=== PATIENT | male | born 1970 | race Caucasian/White ===

== ENCOUNTER 2022-08-23 08:51 | Inpatient (IN) | payer OTHER ==
[~2022-08-23] VITALS: Ht 175.3 cm; Wt 108.4 kg
[2022-08-23] VITALS (29 sets, daily range): BP systolic 114–159; BP diastolic 45–95
[2022-08-23 10:18] LABS: Hematocrit 20.3 % (37.0-53.0); Hemoglobin 7.3 g/dL (13.5-17.5); Mean Corpuscular HGB 34.8 pg (26.0-34.0); Mean Corpuscular Volume 97 fL (80-100); RDW Coefficient Variation 20.7 % (11.7-14.2); RDW Standard Deviation 71.4 fL (35.1-46.3); White Blood Cell Count 2.06 K/mm3 (4.00-11.30)
[2022-08-23 10:19] LABS: Albumin, Blood 1.6 g/dL (3.4-5.0); Bilirubin, Total 14.9 mg/dL (0.1-1.0); Bun/Creatinine Ratio 54.6 (12.0-20.0); Calcium, Blood 6.1 mg/dL (8.5-10.1); Creatinine, Blood 1.96 mg/dL (0.60-1.20); Globulin, Blood 1.6 g/dL (2.2-4.0); Potassium, Blood 2.5 mmol/L (3.5-5.5); Total Protein, Blood 3.2 g/dL (6.4-8.2)
[2022-08-23 10:26] LABS: Platelet Count 28 K/mm3 (150-400)
[2022-08-23 10:33] LABS: International Normalized Ratio 2.36; Prothrombin Time Results 23.6 Sec (9.7-11.5)
[2022-08-23 10:39] LABS: BAND PERCENT MAN 14 % (0-8); BASOPHILS PERCENT MAN 0 % (0-2); EOSINOPHILS ABSOLUTE MAN 0.02 K/mm3 (0.00-0.68); EOSINOPHILS PERCENT MAN 1 % (0-6); LYMPHOCYTES ABSOLUTE MAN 0.16 K/mm3 (0.84-5.20); LYMPHOCYTES PERCENT MAN 8 % (21-46); METAMYELOCYTE ABSOLUTE MAN 0.04 K/mm3 (0.00-0.00); METAMYELOCYTE PERCENT MAN 2 % (0-0); MONOCYTES ABSOLUTE MAN 0.02 K/mm3 (0.16-1.47); MONOCYTES PERCENT MAN 1 % (4-13); MYELOCYTE ABSOLUTE MAN 0.06 K/mm3 (0.00-0.00); MYELOCYTE PERCENT MAN 3 % (0-0); NEUTROPHILS ABSOLUTE MAN 1.75 K/mm3 (1.96-9.15); SEG NEUTROPHILS PERCENT MAN 71 % (41-73); TOTAL CELLS COUNTED 100
[2022-08-23 11:51] LABS: Base Excess Venous -6.4 mmol/L; Bicarbonate Venous 19.6 mmol/L (24.0-30.0); PCO2 Venous 34.3 mmHg (38-42); pH Blood Venous 7.36 (7.34-7.37)
[2022-08-23] MEDS ORDERED: SODBIC650 PO (12:56)
[2022-08-23] MEDS ORDERED: TRAZ50 PO (12:56)
[2022-08-23] MEDS ORDERED: Prednisone10 MG PO (12:56)
[2022-08-23] MEDS ORDERED: ONDA4ODT MM (12:57)
[2022-08-23] MEDS ORDERED: INSULANI SC (13:03)
[2022-08-23 14:05] LABS: Albumin, Blood 2.3 g/dL (3.4-5.0); Albumin/Globulin Ratio 1.2 (0.8-1.8); Bilirubin, Total 20.6 mg/dL (0.1-1.0); Bun/Creatinine Ratio 49.7 (12.0-20.0); Calcium, Blood 8.4 mg/dL (8.5-10.1); Creatinine, Blood 3.18 mg/dL (0.60-1.20); Potassium, Blood 3.8 mmol/L (3.5-5.5); Total Protein, Blood 4.3 g/dL (6.4-8.2)
--- NOTE | 2022-08-23 14:10 | NUR ---
ASSUMED CARE PT ARRIVES FROM THE ER ON CPAP OF 12, WITH FIO2 25%. PT ANSWERING QUESTIONS BUT DROWSY. PT TRANSFERRED TO ICU BED, VERY PAINFUL TO LEFT LEG. 10/10 PAIN TO LIGHT TOUCH. PT. HAS PITTING EDEMA T/O BODY, WITH WEAPING BLISTERS TO BILAT LE. PT. HAS BLEEDING EXCORIATION TO GROIN AREA WELL TO BUTTOCKS. DRY FLOWS PLACED IN BED. ATTENDS WET UPON ARRIVAL. MARK CARE DONE AND WOO TEMP PROBE PLACED FOR STRICT I&O. PT. GIVEN SHORT BREAK FROM CPAP FOR ORAL CARE HOWEVER ONLY ABLE TO SPEAK IN 1-2 WORDS AND REPORTS FEELING SOB. PLACED BACK ON CPAP AT THIS TIME. PHOTOS OBTAINED OF WOUNDS AND PUT IN CHART. PT. HR [id number], SEE FLOW SHEET FOR BP. PT. ARRIVES ON 3% SALINE INFUSING THROUGH CENTRAL LINE TO RIGHT CHEST WALL. OOZING NOTED TO DRESSING TO CHEST WALL. REPEAT LABS DRAWN UPON ARRIVAL TO VERIFY LABS. DR. BRUNNER NOTIFIED OF PT ARRIVAL AND ADDITIONAL LAB ORDERS OBTAINED. PT. EXTREMELY TENDER TO LEFT LEG, IT IS RED IN COLOR AND APPEARS MORE SWOLLEN THEN THE OTHER SIDE. THE PT YELLS OUT DURING ASSESSMENT. ABD VERY FIRM AND DISTENDED. FAMILY AT BEDSIDE TO ASSIST WITH HISTORY.
--- NOTE | 2022-08-23 14:40 | NUR ---
REPEAT LABS COMPLETED. 3% SALINE DCD PER DR. CORTEZ.
[2022-08-23 14:49] LABS: Albumin, Blood 2.2 g/dL (3.4-5.0); Anion Gap 14 mmol/L (6-16); Blood Urea Nitrogen 157 mg/dL (8-24); Bun/Creatinine Ratio 50.2 (12.0-20.0); CO2, Blood 17 mmol/L (21-32); Calcium, Blood 8.7 mg/dL (8.5-10.1); Chloride, Blood 105 mmol/L (98-108); Creatinine, Blood 3.13 mg/dL (0.60-1.20); Glomerular Filtration Rate 23 (60-); Glucose, Blood 197 mg/dL (70-99); Phosphorus, Blood 4.7 mg/dL (2.5-4.9); Potassium, Blood 3.6 mmol/L (3.5-5.5); Sodium, Blood 136 mmol/L (136-145)
[2022-08-23 14:52] LABS: Osmolality, Serum 343 mos/KG (275-300)
[2022-08-23 15:08] LABS: Source, Urine Foley catheter
[2022-08-23 15:19] LABS: Hemoglobin 6.1 g/dL (13.5-17.5); Mean Corpuscular HGB 35.1 pg (26.0-34.0); Mean Corpuscular HGB Conc 36.3 g/dL (31.5-36.5); Mean Corpuscular Volume 97 fL (80-100); RDW Coefficient Variation 20.6 % (11.7-14.2); RDW Standard Deviation 72.1 fL (35.1-46.3); Red Blood Cell Count 1.74 M/mm3 (4.30-5.90); White Blood Cell Count 1.71 K/mm3 (4.00-11.30)
[2022-08-23 15:21] LABS: Appearance, Urine Clear (Clear); Blood, Urine 3+ (Neg); Color, Urine Amber (P-Yellow); Glucose Qualitative, Urine Neg (Neg); Ketones, Urine Neg (Neg); Leukocyte Esterase, Urine Neg (Neg); Nitrite, Urine Neg (Neg); Protein, Urine 2+ (Neg); Urobilinogen, Urine NORM (Normal)
[2022-08-23 15:41] LABS: Hematocrit 16.8 % (37.0-53.0); Platelet Count 24 K/mm3 (150-400)
--- NOTE | 2022-08-23 15:45 | NUR ---
DR. DONOHUE TO BEDSIDE TO TALK WITH FAMILY PT , MOTHER, AND SISTER AT BEDSIDE FOR CONVERSATION. PT. DROWSY BUT ABLE TO ANSWER SOME QUESTIONS. BREAK FROM BIPAP AT THIS TIME. PT. AND AGREEING TO SURGERY, PT MOTHER AND SISTER INSISTING ON TALKING TO DR. BRUNNER PRIOR TO SURGERY. DR. BRUNNER CALLED AND WAS ABLE TO TALK WITH FAMILY, WHO THEN AGREED TO SURGERY WELL. ORDERS OBTAINED FOR BLOOD PRODUCTS.
[2022-08-23 15:51] LABS: Bilirubin, Urine 1+ (Neg)
[2022-08-23 15:52] LABS: Bacteria Few /hpf; Renal Epithelial Few /hpf (0-Rare); Squamous Epithelial Cells Few /hpf (Few); White Blood Cells, Urine 0-2 /hpf (0-5)
--- NOTE | 2022-08-23 15:57 | NUR ---
DR. CASTANEDA CALLED TO UPDATED ON PT CONDITION AND PLAN OF CARE
[2022-08-23 15:58] LABS: BAND PERCENT MAN 11 % (0-8); BASOPHILS PERCENT MAN 0 % (0-2); EOSINOPHILS ABSOLUTE MAN 0.01 K/mm3 (0.00-0.68); EOSINOPHILS PERCENT MAN 1 % (0-6); LYMPHOCYTES ABSOLUTE MAN 0.11 K/mm3 (0.84-5.20); LYMPHOCYTES PERCENT MAN 7 % (21-46); METAMYELOCYTE ABSOLUTE MAN 0.01 K/mm3 (0.00-0.00); METAMYELOCYTE PERCENT MAN 1 % (0-0); MONOCYTES PERCENT MAN 6 % (4-13); MYELOCYTE ABSOLUTE MAN 0.03 K/mm3 (0.00-0.00); MYELOCYTE PERCENT MAN 2 % (0-0); NEUTROPHILS ABSOLUTE MAN 1.41 K/mm3 (1.96-9.15); SEG NEUTROPHILS PERCENT MAN 72 % (41-73); TOTAL CELLS COUNTED 100
--- NOTE | 2022-08-23 18:17 | NUR ---
UPDATE PT. FAMILY AND PT WISH FOR CODE STATUS CHANGE, TO BE DNR. THIS WAS ESTABLISHED AFTER HIS LAST HOSPITAL ADMISSION, PT MOM TO BRING IN PAPERWORK. DISCUSSED WITH DR. CASTANEDA AND CODE STATUS UPDATED. PT. CURRENTLY HAS PRBCS AND PLASMA INFUSING, PLANS TO INFUSE THE PLT AND THEN RETURN THE ADDITIONAL BLOOD PRODUCTS PER DR. CASTANEDA. PT FAMILY REMAIN AT BEDSIDE, TEARFUL. PT IS NOT A CANDIDATE FOR SURGERY AT THIS TIME. PLANS FOR PALLIATIVE CARE INVOLVEMENT.
--- NOTE | 2022-08-23 18:30 | NUR ---
PT. TEMP CONTINUES TO DROP DESPITE WARM BLANKET PLACEMENT, BEARHUGGER PLACED AT THIS TIME.
--- NOTE | 2022-08-23 18:57 | NUR ---
SHIFT SUMMARY PT REMAINS ALERT AND RESPONDS TO VERBAL STIMULI, INITIAL PLAN WAS TO TAKE PT TO SURGERY FOR LEFT LEG CELLULITIS, HOWEVER PT WAS TOO UNSTABLE FOR THIS AND A DECISION WAS MADE BETWEEN DR. DONOHUE AND FAMILY TO NOT DO SURGERY AT THIS TIME. PT CODE STATUS CHANGED TO DNR. BLOOD PRODUCTS GIVEN. PT. VSS AT THIS TIME. MINIMAL URINE OUTPUT, PLANS FOR BUMEX THIS PM PER DR. CORTEZ. FAMILY AT BEDSIDE T/O DAY. REPORT TO ONCOMING RN.
[2022-08-23 20:25] LABS: Hemoglobin 6.2 g/dL (13.5-17.5)
[2022-08-23 20:28] LABS: Hematocrit 17.7 % (37.0-53.0)
[2022-08-23 20:39] LABS: International Normalized Ratio 1.95
--- NOTE | 2022-08-23 20:43 | NUR ---
PATIENT SLEEPING AWAKENS TO SLIGHT STIMULI, ORIENT TO SELF, FAMILY AND BEING IN THE HOSPITAL. UNSURE OF DATE, FALLING BACK TO SLEEP WHEN UNDISTURBED. PAIN WITH SLIGHT MOVEMENT, GENERALIZED EDEMA WITH WEEPING YELLOW SEROUS TO ANY SKIN OPENINGS. DRESSING PLACED TO RIGHT ABD, AND ABD PADS PLACED IN GROIN WHICH IS BRIGHT RED. PLAN TO PREMEDICATE FOR PAIN WITH REPOSITIONINGS. BIOX 96% ON RA, USING ACCESSORY MUSCLES WITH BREATHING. BEAR HUGGER DOWN TO LOW DUE TO TEMP 96.3 VIA WOO TEMP PROBE. DOCTOR KANNAN ASKING FOR RENAL PANEL, LABS DRAWN VIA CENTRAL LINE WITHOUT DIFFICULTY.
[2022-08-23 20:45] LABS: Albumin, Blood 2.3 g/dL (3.4-5.0); Anion Gap 13 mmol/L (6-16); Blood Urea Nitrogen 159 mg/dL (8-24); Bun/Creatinine Ratio 49.1 (12.0-20.0); CO2, Blood 20 mmol/L (21-32); Calcium, Blood 8.7 mg/dL (8.5-10.1); Chloride, Blood 104 mmol/L (98-108); Creatinine, Blood 3.24 mg/dL (0.60-1.20); Glomerular Filtration Rate 22 (60-); Glucose, Blood 193 mg/dL (70-99); Phosphorus, Blood 5.1 mg/dL (2.5-4.9); Potassium, Blood 3.6 mmol/L (3.5-5.5); Sodium, Blood 137 mmol/L (136-145)
[2022-08-23 21:03] LABS: Prothrombin Time Results 19.7 Sec (9.7-11.5)
--- NOTE | 2022-08-23 21:29 | NUR ---
DOCTOR KANNAN NOTIFIED OF REPEAT LABS, ORDER OBTAINED FOR BUMEX 5 MG AND CALL WITH OUTPUT IN 2 HRS.
[2022-08-24] VITALS (35 sets, daily range): BP systolic 105–146; BP diastolic 44–110
[2022-08-24 04:07] LABS: Mean Corpuscular HGB 33.9 pg (26.0-34.0); Mean Corpuscular HGB Conc 36.6 g/dL (31.5-36.5); Mean Corpuscular Volume 93 fL (80-100); Mean Platelet Volume 10.6 fL (9.1-12.4); RDW Coefficient Variation 21.7 % (11.7-14.2); RDW Standard Deviation 71.1 fL (35.1-46.3); Red Blood Cell Count 1.77 M/mm3 (4.30-5.90); White Blood Cell Count 2.28 K/mm3 (4.00-11.30)
[2022-08-24 04:12] LABS: Platelet Count 33 K/mm3 (150-400)
[2022-08-24 04:13] LABS: Hematocrit 16.4 % (37.0-53.0)
--- NOTE | 2022-08-24 04:27 | NUR ---
DOCTOR BRONWYN NOTIFIED OF AM CBC AND BLOOD CX. NO SIGN OF ACTIVE BLEEDING SEEN. TRANSFUSE 1 UNIT PRBC AND CONTINUE CURRENT ANTIBIOTICS
[2022-08-24 04:32] LABS: Magnesium, Blood 2.3 mg/dL (1.6-2.4)
[2022-08-24 04:39] LABS: Alanine Aminotransfer (ALT/SGP 137 U/L (12-78); Albumin, Blood 2.3 g/dL (3.4-5.0); Albumin/Globulin Ratio 1.1 (0.8-1.8); Alk Phos 117 U/L (50-136); Anion Gap 12 mmol/L (6-16); Aspartate Aminotrans (AST/SGOT 103 U/L (12-37); Bilirubin, Total 21.5 mg/dL (0.1-1.0); Blood Urea Nitrogen 159 mg/dL (8-24); Bun/Creatinine Ratio 46.2 (12.0-20.0); CO2, Blood 20 mmol/L (21-32); Calcium, Blood 8.6 mg/dL (8.5-10.1); Chloride, Blood 105 mmol/L (98-108); Creatinine, Blood 3.44 mg/dL (0.60-1.20); Globulin, Blood 2.1 g/dL (2.2-4.0); Glomerular Filtration Rate 20 (60-); Glucose, Blood 191 mg/dL (70-99); Phosphorus, Blood 5.2 mg/dL (2.5-4.9); Potassium, Blood 3.6 mmol/L (3.5-5.5); Sodium, Blood 137 mmol/L (136-145); Total Protein, Blood 4.4 g/dL (6.4-8.2); Vancomycin, Random 28.6 ug/mL
[2022-08-24 05:07] LABS: BAND PERCENT MAN 22 % (0-8); BASOPHILS PERCENT MAN 0 % (0-2); EOSINOPHILS ABSOLUTE MAN 0.04 K/mm3 (0.00-0.68); EOSINOPHILS PERCENT MAN 2 % (0-6); LYMPHOCYTES ABSOLUTE MAN 0.18 K/mm3 (0.84-5.20); LYMPHOCYTES PERCENT MAN 8 % (21-46); METAMYELOCYTE ABSOLUTE MAN 0.04 K/mm3 (0.00-0.00); METAMYELOCYTE PERCENT MAN 2 % (0-0); MONOCYTES ABSOLUTE MAN 0.18 K/mm3 (0.16-1.47); MONOCYTES PERCENT MAN 8 % (4-13); MYELOCYTE ABSOLUTE MAN 0.04 K/mm3 (0.00-0.00); MYELOCYTE PERCENT MAN 2 % (0-0); NEUTROPHILS ABSOLUTE MAN 1.77 K/mm3 (1.96-9.15); SEG NEUTROPHILS PERCENT MAN 56 % (41-73); TOTAL CELLS COUNTED 50
--- NOTE | 2022-08-24 06:17 | NUR ---
SUMMARY PATIENT SLEEPING MOST OF THE NIGHT WHEN UNDISTURBED. AWAKENS TO SLIGHT STIMULI RECOGNIZING FAMILY AND BEING IN THE HOSPITAL. WHEN AWAKE C/O PAIN TO LEFT FOOT, AND GENERALIZED PAIN. INCREASED PAIN WITH REPOSITIONING. GENERALIZED 3-4+ PITTING EDEMA CONTINUES. WOO DRAINING SMALL AMT OF ORANGE URINE 24 HR URINE IN PROGRESS. SKIN BRIGHT JAUNDICE WITH WEEPING YELLOW SEROUS FLUID TO ANY BREAK IN SKIN, SCATTERED BLISTERS TO BOTH LEGS AND FEET. FOAM DRESSING AND ABD PAD PLACED TO RIGHT ABD DUE TO LARGE AMT OF DRAINAGE. 1 UNIT PRBC INFUSING. FAMILY AT BEDSIDE T/O NIGHT.
--- NOTE | 2022-08-24 09:00 | NUR ---
ASSUMED CARE: REPORT RECEIVED FROM CHESTER Sawyer RN. ASSUMED CARE OF THIS PT AT APPROX 0700. ON ASSESSMENT, THE PT IS RESTING QUIETLY & AWAKENS EASILY TO VERBAL STIMULUS. HE IS ALERT TO SELF, FAMILY & PLACE. FAMILY STS THAT HE IS MORE ALERT THAN IN PRIOR DAYS & APPEARS TO BE "FEELING MUCH BETTER." LS DIM IN BASES, PT ON RA W/ O2 SATS > 95%. MONITOR SHOWS SR W/ HR 90s, BP STABLE. PT HAS NO GI COMPLAINTS OTHER THAN THIRST. TOLERATES SIPS OF WATER WELL FOR LOCKSTITCH WAISTLINE JOINER. WOO PATENT/ DRAINING CLEAR ORANGE URINE. OUTPUT INCREASED SLIGHTLY SINCE DIURESIS PER EMAR. BUMEX DRIP INITIATED AFTER BOLUS, PER DR BRUNNER. SKIN CONDITION OVERALL EDEMATOUS, FRAGILE. NUMEROUS AREAS OF SKIN TEARS & BLISTERS THAT ARE WEEPING SEROUS YELLOW FLUID, DRI-FLOW PADS IN PLACE. LLE PAINFUL, WORSE IN ANKLE TODAY. EXACERBATED W/ REPOSITIONING, IMPROVED AT REST. PAIN MEDS PER EMAR. PRBCs INFUSED PER ORDERS. WILL REQUEST FOLLOW-UP H&H FROM PROVIDER. WILL CONTINUE TO MONITOR & UPDATE NEEDED.
--- NOTE | 2022-08-24 10:00 | NUR ---
DR CASTANEDA: PROVIDER AT BEDSIDE THIS AM TO EVAL PT. REPEAT H&H REQUESTED S/P PRBC INFUSION THIS AM. ADITIONAL UNIT PRBCs ORDERED, THEN RECHECK H&H 1 HR AFTER INFUSED. FENTANYL DOSING ADJUSTED TO BETTER TREAT PT's PAIN AT TIMES OF REPOSITIONING & INCREASED ADLs. SHE WOULD LIKE THIS RN TO CONTACT [facility] TO OBTAIN PT's INPATIENT RECORDS FOR RECENT HOSPITALIZATION. NO OTHER CHANGES AT THIS TIME.
--- NOTE | 2022-08-24 16:42 | NUR ---
DR BRUNNER: CALL FROM PROVIDER REQUESTING PT UPDATE. NOTIFIED HIM OF 500 ML TOTAL UO THIS SHIFT. HE STS TO GIVE ANOTHER DOSE OF IV ALBUMIN FOLLOWED BY 160 MG IV LASIX. THIS RN HAS CLARIFIED THAT CONTINUOUS BUMEX INFUSION IS TO CONTINUE DURING THIS TIME & PROVIDER STS THAT IT IS TO CONTINUE INDEFINITELY.
--- NOTE | 2022-08-24 17:14 | NUR ---
PHARMACY UPDATE: CALL FROM VICKIE, PHARMACIST, REGARDING NEW ORDERS FOR THIS PT. THERE IS CONCERN FOR OTOTOXICITY W/ AMNT OF DIURETICS BEING GIVEN. THIS RN HAS COMMUNICATED & DOCUMENTED THAT DR BRUNNER WAS CLEAR W/ HIS ORDERS TO CONTINUE BUMEX DRIP WHILE GIVING IV LASIX. SHE STS THAT THE IV LASIX MUST BE GIVEN OVER A MINIMUM OF 4 MINUTES IVP TO REDUCE THE RISK & REQUESTS THAT THE PT's HEARING BE CHECKED REGULARLY DURING DIURESIS.
[2022-08-24 17:43] LABS: Hematocrit 20.2 % (37.0-53.0)
[2022-08-24 17:44] LABS: Hemoglobin 7.6 g/dL (13.5-17.5)
--- NOTE | 2022-08-24 18:32 | NUR ---
SHIFT SUMMARY: NO ACUTE CHANGES THIS SHIFT. PT REMAINS A&O, HE IS PLEASANT & COOPERATIVE W/ CARE. HE HAS CONTINUED TO BE INCREASINGLY ALERT THIS SHIFT & IS CONVERSANT W/ STAFF/ FAMILY AT BEDSIDE. LS DIM IN BASES, PT ON RA W/ O2 SATS > 95%. MONITOR SHOWS SR W/ HR 70-80s, BP STABLE. PT HAS NO GI COMPLAINTS, IS TOLERATING SIPS OF WATER WELL. WILL REQUEST DIET ORDER TOMORROW AM IF PT CONTINUES TO IMPROVE OVERNIGHT. NO BM THIS SHIFT. TEMP WOO PATENT/ DRAINING CLEAR, ORANGE URINE, REMAINS IN PLACE FOR STRICT I&O MONITORING. DIURESIS PER EMAR - SEE I&O. 24 HR URINE WILL BE COMPLETED AT 1900 THIS EVENING. SKIN CONDITION OVERALL EDEMATOUS, FRAGILE, JAUNDICED. NUMEROUS AREAS OF SKIN TEARING & BLISTERS REMAIN PRESENT T/O. EXTREMITIES ARE WEEPING YELLOW SEROUS FLUID, DRI-FLOW PADS IN PLACE TO KEEP SKIN DRY. WILL CONTINUE TO MONITOR & REPORT OFF TO ONCOMING RN.
[2022-08-24 20:55] LABS: Albumin, Blood 2.5 g/dL (3.4-5.0); Anion Gap 11 mmol/L (6-16); Blood Urea Nitrogen 163 mg/dL (8-24); Bun/Creatinine Ratio 44.9 (12.0-20.0); CO2, Blood 21 mmol/L (21-32); Calcium, Blood 8.3 mg/dL (8.5-10.1); Chloride, Blood 104 mmol/L (98-108); Creatinine, Blood 3.63 mg/dL (0.60-1.20); Glomerular Filtration Rate 19 (60-); Glucose, Blood 191 mg/dL (70-99); Phosphorus, Blood 5.5 mg/dL (2.5-4.9); Potassium, Blood 3.2 mmol/L (3.5-5.5); Sodium, Blood 136 mmol/L (136-145)
[2022-08-25] VITALS (26 sets, daily range): BP systolic 110–153; BP diastolic 47–82
[2022-08-25 04:06] LABS: Vancomycin, Random 22.1 ug/mL
--- NOTE | 2022-08-25 06:38 | NUR ---
SHIFT SUMMARY: NO ACUTE CHANGES THROUGHOUT THE SHIFT. PT WAS ABLE TO SLEEP FOR MOST OF THE NIGHT. VSS THROUGHOUT THE NIGHT. PT HAD 400 ML URINE OUTPUT THIS SHIFT AND NO BM. BUMEX GTT @ 1 MG/HR; RENAL PANAL AND MAGNESIUM LAB DRAW ORDERED AT [address] BRUNNER WOULD LIKE RN TO CALL IN RESULTS. THE LAB RESULTS ARE STILL PENDING AT THIS TIME. PT HAD ABOUT 720 IN FLUID INTAKE THROUGHOUT THE NIGHT. BED LOWERED, CALL LIGHT IN REACH, WILL CONTINUE TO MONITOR.
[2022-08-25 06:42] LABS: Magnesium, Blood 2.2 mg/dL (1.6-2.4)
[2022-08-25 06:51] LABS: Albumin, Blood 2.6 g/dL (3.4-5.0); Anion Gap 12 mmol/L (6-16); Blood Urea Nitrogen 157 mg/dL (8-24); Bun/Creatinine Ratio 42.9 (12.0-20.0); CO2, Blood 20 mmol/L (21-32); Calcium, Blood 8.3 mg/dL (8.5-10.1); Chloride, Blood 104 mmol/L (98-108); Creatinine, Blood 3.66 mg/dL (0.60-1.20); Glomerular Filtration Rate 19 (60-); Glucose, Blood 182 mg/dL (70-99); Phosphorus, Blood 5.6 mg/dL (2.5-4.9); Potassium, Blood 3.3 mmol/L (3.5-5.5); Sodium, Blood 136 mmol/L (136-145)
--- NOTE | 2022-08-25 08:10 | NUR ---
ASSUMED CARE / DR CASTANEDA: REPORT RECEIVED FROM RANI Garcia RN. ASSUMED CARE OF THIS PT AT APPROX 0700. ON ASSESSMENT, THE PT IS A&O, PLEASANT & COOPERATIVE. HE KNOWS HE IS AT "[facility]" BUT DOES NOT REMEMBER THE NAME OF THE FACILITY, REORIENTS EASILY BUT IS STILL SOMEWHAT FORGETFUL AT TIMES. DENIES PAIN THIS AM AT REST. LS DIM IN BASES, PT ON RA W/ O2 SATS > 95%. MONITOR SHOWS SR W/ HR 80s, BP STABLE. PT DENIES GI COMPLAINTS, ALTHOUGH STS HAVING POOR APPETITE. URINE OUTPUT REMAINS POOR THROUGHOUT THE NIGHT, WILL CONTINUE TO MONITOR UO Q2H FOR STRICT I&O, TEMP WOO REMAINS PATENT/ DRAINING CLEAR ALEX URINE. SKIN CONDITION OVERALL JAUNDICED, FRAGILE. NUMEROUS AREAS OF BLISTERING EDEMA NOTED & SMALL OPEN SORES ON BUTTOCKS. DRESSINGS CHANGED PRN. Q2H REPOSITIONING TO MAINTAIN SKIN INTEGRITY. DR CASTANEDA AT BEDSIDE THIS AM TO EVAL PT. SHE STS OKAY TO BEGIN FEEDING THE PT HE HAS TOLERATED SIPS OF WATER WELL SO FAR. WOULD LIKE HIM TO REMAIN ICU STATUS FOR ONE MORE DAY OF CONTINUED MONITORING. WILL CONTINUE TO MONITOR & UPDATE NEEDED. WILL CONTINUE TO MONITOR & UPDATE NEEDED.
--- NOTE | 2022-08-25 17:30 | NUR ---
SHIFT SUMMARY / TRANSFER OF CARE: NO ACUTE CHANGES THIS SHIFT. PT REMAINS A&O, PLEASANT & COOPERATIVE. FAMILY HAS BEEN AT BEDSIDE FOR MOST OF THIS SHIFT & IS SUPPORTIVE IN CARE MEASURES. LS DIM IN BASES, PT ON RA W/ O2 SATS > 95%. MONITOR SHOWS SR W/ HR 80s, BP STABLE. PT HAS NO GI COMPLAINTS, HAS DONE WELL W/ ST EVAL THIS EVENING. SMALL AMNTS CLEAR ORANGE URINE DRAINING FROM TEMP PROBE WOO. SKIN CONDITION OVERALL JAUNDICED, FRAGILE & EDEMATOUS. NO CHANGES SINCE INITIAL ASSESSMENT. ALL DRI-FLOW PADS & DRESSINGS HAVE BEEN CHANGED PRN THIS SHIFT. REPORT GIVEN TO KRISTY Bowden RN TO ASSUME CARE FOR REMAINDER OF SHIFT. FAMILY VERBALIZES UNDERSTANDING OF TRANSFER OF CARE.
--- NOTE | 2022-08-25 18:38 | NUR ---
ASSUMPTION OF CARE/ SHIFT SUMMARY ASSUMED PATIENT AROUND 1700. PATIENT AFEBRILE. PATIENT GIVEN PRN FENTANYL JUST BEFORE ASSUMED ARE FOR COMPLAINTS OF LEG PAIN. PATIENT ORIENTED TO SELF, FAMILY, FOLLOWING DIRECTIONS. PATIENT FORGETFUL AT TIMES. PATIENT SATTING 90% AND GREATER ON RA. PATIENT IN SR WITH HR 80S TO 90S AND SBP LOW 100S TO 150S ON DAY SHIFT. NO BM ON DAY SHIFT. POOR APPETITE. 795 MLS OF URINE OUT FROM WOO OUT THIS SHIFT. BLOOD SUGARS 174 AND 166 ON DAY SHIFT. FAMILY IN ROOM AT BEDSIDE. BED LOW, CALL LIGHT IN REACH. REPORT WILL BE GIVEN TO ASSUMING PAPER BAG MAKER NURSE SHORTLY.
--- NOTE | 2022-08-25 22:20 | NUR ---
ASSUMED CARE AT 1900 PATIENT IS ALERT AND ORIENTED TO SELF AND FAMILY. UNABLE TO STATE YEAR OR MONTH. 02 SATS >95% ON RA, DENIES SOB. HR SR 77, BP STABLE. TEMP WOO PATENT AND DRAINING SMALL AMOUNT OF DARK ALEX URINE. PATIENT LINEN CHANGED AND PADS PLACED UNDER WEEPING WOUNDS. RIGHT CL REMOVED, CHG PLACED. NEW MEPLIX PLACED ON BUTTOCKS. CALL LIGHT IN REACH, SISTER AT BEDSIDE
[2022-08-26] VITALS (56 sets, daily range): BP systolic 101–151; BP diastolic 48–100
[2022-08-26 04:13] LABS: Hematocrit 19.7 % (37.0-53.0); Hemoglobin 7.3 g/dL (13.5-17.5)
[2022-08-26 04:35] LABS: Magnesium, Blood 2.3 mg/dL (1.6-2.4)
[2022-08-26 05:37] LABS: Albumin, Blood 2.1 g/dL (3.4-5.0); Anion Gap 15 mmol/L (6-16); Blood Urea Nitrogen 173 mg/dL (8-24); Bun/Creatinine Ratio 40.3 (12.0-20.0); CO2, Blood 21 mmol/L (21-32); Calcium, Blood 7.7 mg/dL (8.5-10.1); Chloride, Blood 102 mmol/L (98-108); Creatinine, Blood 4.29 mg/dL (0.60-1.20); Glomerular Filtration Rate 16 (60-); Glucose, Blood 214 mg/dL (70-99); Phosphorus, Blood 5.6 mg/dL (2.5-4.9); Potassium, Blood 3.4 mmol/L (3.5-5.5); Sodium, Blood 138 mmol/L (136-145); Vancomycin, Random 18.7 ug/mL
--- NOTE | 2022-08-26 07:01 | NUR ---
SHIFT SUMMARY PATIENT IS ALERT AND ORIENTED X2. 02 SATS >95% ON RA, DENIES SOB. HR SR 80s, BP STABLE. TEMP WOO PATENT AND DRAINING TO GRAVITY. BED CHANGED MULTIPLE TIMES DUE TO WEEPING WOUNDS. PATIENT TURNED Q2 HOURS. CALL LIGHT IN REACH.
[2022-08-26 07:44] LABS: Hematocrit 19.7 % (37.0-53.0); Hemoglobin 7.3 g/dL (13.5-17.5); Mean Corpuscular HGB 32.3 pg (26.0-34.0); Mean Corpuscular HGB Conc 37.1 g/dL (31.5-36.5); RDW Coefficient Variation 22.3 % (11.7-14.2); RDW Standard Deviation 67.3 fL (35.1-46.3); Red Blood Cell Count 2.26 M/mm3 (4.30-5.90); White Blood Cell Count 5.44 K/mm3 (4.00-11.30)
[2022-08-26 07:51] LABS: Mean Corpuscular Volume 87 fL (80-100)
[2022-08-26 08:02] LABS: Platelet Count 23 K/mm3 (150-400)
[2022-08-26 08:12] LABS: BAND PERCENT MAN 2 % (0-8); BASOPHILS PERCENT MAN 0 % (0-2); EOSINOPHILS ABSOLUTE MAN 0.27 K/mm3 (0.00-0.68); EOSINOPHILS PERCENT MAN 5 % (0-6); LYMPHOCYTES ABSOLUTE MAN 0.27 K/mm3 (0.84-5.20); LYMPHOCYTES PERCENT MAN 5 % (21-46); MONOCYTES ABSOLUTE MAN 0.32 K/mm3 (0.16-1.47); MONOCYTES PERCENT MAN 6 % (4-13); NEUTROPHILS ABSOLUTE MAN 4.56 K/mm3 (1.96-9.15); SEG NEUTROPHILS PERCENT MAN 82 % (41-73); TOTAL CELLS COUNTED 100
--- NOTE | 2022-08-26 08:15 | NUR ---
INITIAL ASSESSMENT PATIENT LYING IN BED UPON ENTERING ROOM. PATIENT LETHARGIC BUT ALERT ONCE BEING SPOKEN TO. PATIENT ORIENTED ONLY TO SELF, FAMILY AND FOLLOWING COMMANDS. PATIENT STATES HE "IS AT [facility], THAT THE YEAR IS 2002 AND THAT [facility]". SCLERA AND SKIN YELLOW. SISTER AT BEDSIDE. PATIENT REPORTS PAIN WITH MOVEMENT AND IS LOWER EXTREMITIES. PATIENT AFEBRILE. UPPER LUNG LOBES CLEAR, LOWER LOBES DIMINISHED. PATIENT SATTING 90% AND GREATER ON RA. PATIENT IN SR, HR IN THE 80S. SBP 130S TO 150S. ANASARCA NOTED. 2 TO 4+ PITTING EDEMA NOTED AND PATIENT HAS SIGNIFICANT SEROUS FLUID WEEPING FROM ABD AND LEGS. ABD SEVERELY DISTENDED, FIRM, WITH HYPOACTIVE BOWEL SOUNDS NOTED. POOR APPETITE NOTED. NO BM DOCUMENTED THIS HOSPITAL STAY. PATIENT STATES HE HAS BEEN HAVING FLATULENCE. WOO DRAINING DARK ALEX COLORED URINE. PATIENT IS NOW GETTING BUMEX TID. SKIN TEARS AND BRUISING SCATTERED. BLISTERING AND WEEPING ALL OVER LEGS AND R ABD. EXCORIATIONS TO GROINS AND BUTTOCKS. PATIENT RECEIVED 20 MEQ KCL THIS AM FOR POTASSIUM OF 3.4 THIS AM. BED LOW, CALL LIGHT IN REACH. WILL CONTINUE TO MONITOR PATIENT FREQUENTLY THROUGHOUT SHIFT.
--- NOTE | 2022-08-26 10:50 | NUR ---
DR. CASTANEDA HERE TO SEE PATIENT AND SPEAK WITH FAMILY IN ROOM. DOCTOR INFORMED THAT POTASSIUM 3.4 THIS AM AND THAT PATIENT RECEIVED 20 MEQ POTASSIUM REPLACEMENT. INFORMED THAT PATIENT DOES NOT HAVE DVT PROPHYLAXIS BUT THAT PATIENT PLATELETS 33 YESTERDAY AND NOW 23 TODAY. PATIENT WOULD NOT BE ABLE TO WEAR SCDS BECAUSE OF HOW SWOLLEN AND PAINFUL LEGS ARE. INFORMED THAT HEMOGLOBIN 8 YESTERDAY AND 7.[address] BRUNNER INCREASED BUMEX FROM BID TO TID. INFORMED THAT PATIENT HAS BEEN UNABLE TO HAVE BOWEL MOVEMENT AND STATES THAT HE KEEPS TRYING TO GO. INFORMED THAT PATIENT HAS BEEN RECEIVING PAIN MEDICATIONS. INFORMED THAT PATIENT'S NECK EDEMATOUS TODAY AND WAS NOT YESTERDAY. DR. CASTANEDA LOOKED AT PATIENT'S NECK. ORDER RECEIVED TO CHANGE PATIENT TO PCU STATUS AND CHANGE BLOOD SUGARS TO ACHS. STATED SHE WOULD ORDER BOWEL CARE.
--- NOTE | 2022-08-26 12:00 | NUR ---
PATIENT AFEBRILE. PATIENT STATES PAIN IS MANAGEABLE AT THIS TIME AND REFUSES REPOSITIONING. PATIENT DOES NOT WANT LUNCH AT THIS TIME. HR IN THE 80S. SBP IN THE 120S. 30 MLS URINE OUTPUT INTO WOO. 24 HOUR URINE COLLECTION BEGAN AT 1030. BLOOD SUGAR 199; COVERAGE ADMINISTERED. NO OTHER ACUTE CHANGES TO NOTE ON AT THIS TIME. WILL CONTINUE TO MONITOR.
--- NOTE | 2022-08-26 15:00 | NUR ---
Pt's son at bedside; he and pt's have elected to make the pt comfort care. Dr. Leon states she will make changes to code status and review meds today. Son and pt's are both on board and verbalize understanding. Palliative care to remain available.
--- NOTE | 2022-08-26 16:05 | NUR ---
Met with pt's daughter and at pt's bedside while he is resting quietly with eyes closed. They report they haven't decided yet if pt will pursue dialysis if he ends up needing it. The pt is jaundiced, and states he is sleeping often. Plan to check in with them again tomorrow, and they are good with this.
--- NOTE | 2022-08-26 16:06 | NUR ---
DR. BRUNNER CALLED AND INFORMED THAT PATIENT HAS ONLY HAD 140 MLS OF URINE OUTPUT THIS SHIFT. ORDER RECEIVED AND PLACED. DR. CASTANEDA CALLED AND INFORMED OF URINE OUTPUT AND ORDERS RECEIVED FROM DR. BRUNNER. ALSO INFORMED DR. CASTANEDA THAT PATIENT HAD SMALL TARRY, BLACK BM. INFORMED THAT PATIENT HAD SMALL NOSE BLEED AND THAT THE WOUND ON PATIENT'S R BUTTOCKS CONTINUES TO OOZE BLOOD. NO ORDERS RECEIVED FROM DR. CASTANEDA AT THIS TIME.
--- NOTE | 2022-08-26 16:43 | NUR ---
PATIENT AFEBRILE. HR 70S TO 90S. SBP IN THE 120S. BLACK HAD SMALL, TARRY/BLACK BM. BLOOD SUGAR OF 211; COVERAGE ADMINISTERED. NO OTHER ACUTE CHANGES NOTED AT THIS TIME. WILL CONTINUE TO MONITOR.
[2022-08-26 17:37] LABS: Hematocrit 20.4 % (37.0-53.0); Hemoglobin 7.6 g/dL (13.5-17.5); Mean Corpuscular HGB 32.6 pg (26.0-34.0); Mean Corpuscular HGB Conc 37.3 g/dL (31.5-36.5); Mean Corpuscular Volume 88 fL (80-100); RDW Coefficient Variation 22.5 % (11.7-14.2); RDW Standard Deviation 69.4 fL (35.1-46.3); Red Blood Cell Count 2.33 M/mm3 (4.30-5.90); White Blood Cell Count 5.51 K/mm3 (4.00-11.30)
[2022-08-26 17:51] LABS: International Normalized Ratio 2.59; Prothrombin Time Results 25.8 Sec (9.7-11.5)
[2022-08-26 17:55] LABS: Platelet Count 22 K/mm3 (150-400)
--- NOTE | 2022-08-26 18:27 | NUR ---
DR. CASTANEDA INFORMED THAT PATIENT BLEEDING FROM NOSE WITH TURNS AND THAT PATIENT HAD ANOTHER BM; LARGE, LOOSE AND BLACK. INFORMED THAT PLATELETS NOW 22. NO ORDERS RECEIVED AT THIS TIME.
[2022-08-26 19:07] LABS: Hematocrit 20.4 % (37.0-53.0); Hemoglobin 7.4 g/dL (13.5-17.5)
--- NOTE | 2022-08-26 19:07 | NUR ---
SHIFT SUMMARY PATIENT REMAINED CONFUSED AND LETHARGIC. PATIENT CONTINUED WITH PAIN WITH EVERY MOVEMENT OR TOUCH. PRN FENTANYL GIVEN ALMOST Q2H FOR PAIN IN LEGS AND BACK. PATIENT REMAINED AFEBRILE. PATIENT REMAINS WEAK. PATIENT REMAINED SATTING 90% AND GREATER ON RA. PATIENT IN SR, HR 70S TO 90S. SBP LOW 100S TO 150S. ANASARCA REMAINS. WEEPING REMAINS; DRY FLOWS CHANGED FREQUENTLY THROUGHOUT SHIFT. PATIENT HAD TWO BLACK BMS THIS SHIFT; LAST BM LARGE AND LOOSE. PATIENT ALSO HAD 2 BLOODY NOSES THIS SHIFT WHEN TURNED FOR CLEANING AND BED BATH. PATIENT HAD POOR APPETITE. PATIENT DID NOT WANT LUNCH OR DINNER. WOO DRAINED ONLY 200 MLS OF DARK ALEX COLORED URINE THIS SHIFT. DR. BRUNNER INFORMED AND PATIENT GIVEN LASIX 160 MG IV OT AND ZAROXLYN 10 MG PO OT. BUMEX DOSE TONIGHT WILL BE SKIPPED AND RESTARTED TOMORROW. NO CHANGES TO SKIN NOTED. PATIENT REPOSITIONED Q2H. VERITO AND CLEBEN DC'D THIS SHIFT. PT/OT/ST ALL WORKED WITH PATIENT TODAY. VIT K PO GIVEN AFTER 2ND BM. COMPLETE BED BATH PERFORMED. PATIENT NOW NPO FOR CONSULT WITH GI DRRacquel FOR BLEEDING. BLOOD SUGARS 199 AND 211 THIS SHIFT. FAMILY IN ROOM ALL DAY. REPORT HAS BEEN GIVEN TO ASSUMING ONLINE COMMUNITY MANAGER NURSE.
[2022-08-26 20:41] LABS: Anion Gap 13 mmol/L (6-16); Blood Urea Nitrogen 184 mg/dL (8-24); Bun/Creatinine Ratio 39.6 (12.0-20.0); CO2, Blood 21 mmol/L (21-32); Calcium, Blood 7.6 mg/dL (8.5-10.1); Chloride, Blood 103 mmol/L (98-108); Creatinine, Blood 4.65 mg/dL (0.60-1.20); Glomerular Filtration Rate 14 (60-); Glucose, Blood 221 mg/dL (70-99); Phosphorus, Blood 5.4 mg/dL (2.5-4.9); Potassium, Blood 3.7 mmol/L (3.5-5.5); Sodium, Blood 137 mmol/L (136-145)
[2022-08-26 20:48] LABS: D-Dimer, Quantitative 7.75 mg/L FEU (0.00-0.52)
--- NOTE | 2022-08-26 23:42 | NUR ---
ASSUMED CARE AT 1900 PATIENT IS ALERT/DROWSY AT TIMES, ORIENTED TO SELF AND FAMILY. UNABLE TO STATE YEAR, MONTH, OR CITY. 02 SATS 97% ON RA, DENIES SOB. HR SR 71, BP STABLE, DENIES CP PRESSURE. WOO PATENT AND DRAINING TO GRAVITY, DARK ALEX AND MINIMAL OUTPUT. 24 HOUR URINE BEING COLLECTED. PLATELETS AND FFP REPLACED THIS SHIFT. PROTONIX AND OCTREOTIDE INF. PATIENT HAD BLACK TARRY STOOL. DR. LUCERO WAS TO THE ROOM TO SEE PATIENT AND TALKED WITH FAMILY, NO FURTHER ORDERS AT THIS TIME. DR. BRUNNER TALKED WITH FAMILY OVER THE PHONE AND ORDERED A DR. KUMAR CONSULT FOR A PERMACATH PLACEMENT FOR DIALYSIS TOMORROW. PATIENT LINEN CHANGED AND DRESSINGS CHANGED. CALL LIGHT IN REACH AND REMAINS AT BEDSIDE
[2022-08-27] VITALS (80 sets, daily range): BP systolic 90–140; BP diastolic 42–77
[2022-08-27 03:42] LABS: BASOPHILS ABSOLUTE AUTO 0.01 K/mm3 (0.00-0.23); BASOPHILS PERCENT AUTO 0 % (0-2); EOSINOPHILS ABSOLUTE AUTO 0.15 K/mm3 (0.00-0.68); EOSINOPHILS PERCENT AUTO 4 % (0-6); Hematocrit 18.5 % (37.0-53.0); Hemoglobin 6.8 g/dL (13.5-17.5); IMMATURE GRAN ABSOLUTE AUTO 0.08 K/mm3 (0.00-0.10); IMMATURE GRAN PERCENT AUTO 2 % (0-1); LYMPHOCYTES PERCENT AUTO 5 % (21-46); MONOCYTES ABSOLUTE AUTO 0.46 K/mm3 (0.16-1.47); MONOCYTES PERCENT AUTO 11 % (4-13); Mean Corpuscular HGB 32.4 pg (26.0-34.0); Mean Corpuscular HGB Conc 36.8 g/dL (31.5-36.5); Mean Corpuscular Volume 88 fL (80-100); Mean Platelet Volume 11.3 fL (9.1-12.4); NEUTROPHILS ABSOLUTE AUTO 3.21 K/mm3 (1.96-9.15); NEUTROPHILS PERCENT AUTO 78 % (41-73); RDW Coefficient Variation 22.2 % (11.7-14.2); RDW Standard Deviation 68.6 fL (35.1-46.3); White Blood Cell Count 4.11 K/mm3 (4.00-11.30)
[2022-08-27 03:47] LABS: Platelet Count 40 K/mm3 (150-400)
[2022-08-27 03:58] LABS: International Normalized Ratio 2.12
[2022-08-27 04:10] LABS: Magnesium, Blood 2.2 mg/dL (1.6-2.4)
[2022-08-27 04:18] LABS: Alanine Aminotransfer (ALT/SGP 102 U/L (12-78); Albumin, Blood 2.1 g/dL (3.4-5.0); Alk Phos 142 U/L (50-136); Anion Gap 13 mmol/L (6-16); Aspartate Aminotrans (AST/SGOT 71 U/L (12-37); Bilirubin, Direct 17.9 mg/dL (0.0-0.3); Bilirubin, Indirect 3.5 mg/dL (0.1-0.7); Bilirubin, Total 21.4 mg/dL (0.1-1.0); Blood Urea Nitrogen 184 mg/dL (8-24); Bun/Creatinine Ratio 37.4 (12.0-20.0); CO2, Blood 20 mmol/L (21-32); Calcium, Blood 7.6 mg/dL (8.5-10.1); Chloride, Blood 102 mmol/L (98-108); Creatinine, Blood 4.92 mg/dL (0.60-1.20); Globulin, Blood 2.1 g/dL (2.2-4.0); Glomerular Filtration Rate 13 (60-); Glucose, Blood 212 mg/dL (70-99); Phosphorus, Blood 5.8 mg/dL (2.5-4.9); Potassium, Blood 3.8 mmol/L (3.5-5.5); Sodium, Blood 135 mmol/L (136-145); Total Protein, Blood 4.2 g/dL (6.4-8.2); Vancomycin, Random 26.9 ug/mL
[2022-08-27 04:35] LABS: Prothrombin Time Results 21.3 Sec (9.7-11.5)
--- NOTE | 2022-08-27 06:32 | NUR ---
SHIFT SUMMARY PATIENT IS ALERT AND ORIENTED X2. FOLLOWS COMMANDS. 02 SATS 98% ON RA. RR 8-15. HR SR 74, BP HYPOTENSIVE THIS AM, TRANSFUSING 1 UNIT PRBCs. BLACK TARRY STOOL OVERNIGHT. WOO PATENT, WITH MINIMAL OUTPUT, 24 HOUR URINE IN PROGRESS. REPOSITIONED Q2 HOURS. MEDS CRUSHED WITH APPLESAUCE. REMAINED AT BEDSIDE THROUGH THE NIGHT. CALL LIGHT IN REACH
--- NOTE | 2022-08-27 08:14 | NUR ---
[place] of Care: Care assumed at 0700hr. Patient sleeping, easily roused to verbal stimuli. Appears slightly drowsy, but able to stay awake and converse with staff and family. Oriented to self and place, confused to date/time and reason for admission. VSS, spO2 97% on RA, no s/s of dyspnea/SOB. PICC line to POP patent and intact. Protonix gtt and Sandostatin gtt infusin. X1 of PRBC's infusing, approx 150ml remaining. No s/s of active bleeding at this time, NOC RN reports x1 black tarry stool last night. Patient has large amount 3-4+ edema throughout body, weeping edema to BLE's and rt ABD. Patient also jaundice throughout entire body. Pollack cath patent and intact, draining minimal amount of clear yellow urine. Patient's , daughter, and mother and bedside this morning. All family interested in talking with physician r/t dialysis and options moving forward. (Dr. Turner has ordered permacath placement and dialysis for today). Plan to call Dr. Whitley to request bedside conversation with family and patient. Message left for Dr. Parson r/t need for permacath placement.
[2022-08-27 10:22] LABS: International Normalized Ratio 2.31; Prothrombin Time Results 23.1 Sec (9.7-11.5)
[2022-08-27 10:31] LABS: BASOPHILS ABSOLUTE AUTO 0.02 K/mm3 (0.00-0.23); BASOPHILS PERCENT AUTO 1 % (0-2); EOSINOPHILS ABSOLUTE AUTO 0.16 K/mm3 (0.00-0.68); EOSINOPHILS PERCENT AUTO 4 % (0-6); Hematocrit 21.3 % (37.0-53.0); Hemoglobin 7.6 g/dL (13.5-17.5); IMMATURE GRAN ABSOLUTE AUTO 0.08 K/mm3 (0.00-0.10); IMMATURE GRAN PERCENT AUTO 2 % (0-1); LYMPHOCYTES ABSOLUTE AUTO 0.24 K/mm3 (0.84-5.20); LYMPHOCYTES PERCENT AUTO 6 % (21-46); MONOCYTES PERCENT AUTO 12 % (4-13); Mean Corpuscular HGB 31.4 pg (26.0-34.0); Mean Corpuscular HGB Conc 35.7 g/dL (31.5-36.5); Mean Corpuscular Volume 88 fL (80-100); Mean Platelet Volume 12.9 fL (9.1-12.4); NEUTROPHILS ABSOLUTE AUTO 3.12 K/mm3 (1.96-9.15); NEUTROPHILS PERCENT AUTO 76 % (41-73); RDW Coefficient Variation 21.2 % (11.7-14.2); RDW Standard Deviation 65.5 fL (35.1-46.3); Red Blood Cell Count 2.42 M/mm3 (4.30-5.90); White Blood Cell Count 4.12 K/mm3 (4.00-11.30)
[2022-08-27 11:36] LABS: Platelet Count 38 K/mm3 (150-400)
--- NOTE | 2022-08-27 14:04 | NUR ---
Spiritual care visit conducted. Patient is lying in bed and alert. Patient responds slowly but is very aware of the conversation taking place around him. There are several family members present in the rm. They are discussing the matter of going to comfort measures or continuing with dialysis and port installation and other needed procedures. Patient tells us that he wants to live but feels as if his "body is done." Patient's mother has a very strong lady and talks about the many churches and people that are prayiny for the patient. I talk with patient about his spiritual beliefs as he states that he believes in God and he is reaching out to God for help. I talk with him about how migue and beauty can be found right where he is and how leaning into his lady can only add to that beauty. Family join me around the bed as we pray and become tearful during the prayer. They verbalize much appreciation and state that the visit was helpful in helping them in their medical decision making and for encouraging their lady. Spiritual care will continue to remain available
--- NOTE | 2022-08-27 15:28 | NUR ---
ASSUMED CARE ASSUMED CARE OF PT AT 1430. REPORT RECEIVED. PT FAMILY AT BEDSIDE. PLANS TO PLACE DIALYSIS CATHETER AND START DIALYSIS THIS AFTERNOON. PT RESTING IN BED QUIETLY, VITAL SIGNS STABLE.
--- NOTE | 2022-08-27 17:09 | NUR ---
Pt and family decided to move forward with dialysis if needed. They stated this am they wanted to "weigh the pros and cons" of dialysis prior to deciding. They understand the pt is at a much higher risk of bleeding. However, after they talked with both Dr. Turner, director of graduate medical education and Dr. Whitley, the pt's hospitalist. After discussion with both physicians, they did opt to move forward with dialysis. They state they understand there are also risks involved with dialysis, but without it the chance of survival very likely are 0%. Dr. Barry placing the dialysis catheter. Unsure if dialysis has been scheduled at this point.
[2022-08-27 18:16] LABS: Protein, Urine Quantitative 77.2 mg/dL (0.0-11.9)
--- NOTE | 2022-08-27 18:29 | NUR ---
SHIFT SUMMARY NO ACUTE CHANGES SINCE ASSUMING CARE OF PT THIS AFTERNOON. PT REMAINS SOMNOLENT, BUT IS AROUSABLE TO VERBAL STIMULI FOR SHORT PERIODS. PT RECIEVED DIALYSIS THIS EVENING. PT HYPOTENSIVE DURING DIALYSIS, DR BRUNNER NOTIFIED. PT RECIEVED ALBUMIN WITH DIALYSIS AND BP IMPROVED AT THIS TIME. PICC TO YANET REMAINS C/D/I WITH PROTONIX INFUSING AT 10 ML/HR AND SANDOSTATIN AT 25 ML/HR. TRIALYSIS CATH TO RIJ INTACT. PT WITH WOO IN PLACE WITH SCANT URINE OUTPUT NOTED THIS SHIFT. PT REMAINS SEVERELY EDEMATOUS THROUGHOUT AND JAUNDICED. PT PAINFUL WITH ANY MOVEMENT. PT MED PER EMAR. PT FAMILY AT BEDSIDE THROUGHOUT THE SHIFT. WILL CONTINUE TO MONITOR AND REPORT OFF TO ONCOMING RN.
--- NOTE | 2022-08-27 20:00 | NUR ---
ASSUMED CARE OF PT AT 1915. REPORT RECEIVED AT BEDSIDE. PT PRESENTS IN BED. ALERT AND ORIENTED. AND PT'S DAUGHTER AT BEDSIDE. PT NOTED TO BE QUITE JAUNDICED, WELL WEEPING FROM EXTREMITIES, AND ABDOMEN. WILL REVIEW CHART AND PLAN OF CARE FOR THIS PT
[2022-08-28] VITALS (78 sets, daily range): BP systolic 104–157; BP diastolic 48–134
[2022-08-28 05:53] LABS: Hematocrit 19.3 % (37.0-53.0); Hemoglobin 7.2 g/dL (13.5-17.5)
[2022-08-28 06:32] LABS: Albumin, Blood 2.6 g/dL (3.4-5.0); Anion Gap 13 mmol/L (6-16); Blood Urea Nitrogen 133 mg/dL (8-24); CO2, Blood 22 mmol/L (21-32); Calcium, Blood 8.1 mg/dL (8.5-10.1); Chloride, Blood 100 mmol/L (98-108); Creatinine, Blood 3.91 mg/dL (0.60-1.20); Glomerular Filtration Rate 18 (60-); Glucose, Blood 254 mg/dL (70-99); Magnesium, Blood 2.2 mg/dL (1.6-2.4); Phosphorus, Blood 4.9 mg/dL (2.5-4.9); Potassium, Blood 3.8 mmol/L (3.5-5.5); Sodium, Blood 135 mmol/L (136-145)
--- NOTE | 2022-08-28 06:40 | NUR ---
PT HAS BEEN ABLE TO TOLERATE TURNS IN BED BY USING LIFT. PT HAS BEEN MEDICATED TWICE THIS NIGHT WITH 25 MCG'S FENTANYL WITH GOOD RELIEF. VERY MINIMAL URINARY OUTPUT. CONTINUES WITH WEEPING EDEMA. HAS BEEN ABLE TO EAT JELLO, AND APPLESAUCE, WELL A SUPPLEMENT DRINK THIS NIGHT. DOES STATE THAT HE IS FEELING MUCH BETTER THIS MORNING, COMPARED TO WHEN HE FIRST CAME IN TO HOSPITAL. WILL CONTINUE TO MONITOR PT, AND WILL REPORT OFF TO ONCOMING RN.
--- NOTE | 2022-08-28 07:44 | NUR ---
ASSUMED CARE OF PATIENT AND RECEIVED REPORT FROM ORNAMENTAL METAL ERECTOR NURSE. PATIENT IS AWAKE, A&O X 4. DENIES ANY PAIN AT THIS TIME. SINUS RHYTHM AT 90BPM. BP 132/68. BILATERAL LUNG SOUNDS AT BASES ARE DIMINISHED, OTHER AREAS ARE CLEAR. HE CURRENTLY ON ROOM AIR AT 97% SPO2. WOO IN PLACE BUT PATIENT HAS HAD ZERO URINE OUTPUT. ON A MECHANICAL SOFT DIET THAT HE TOLERATES WELL. LAST BM WAS 08/27/22 PM, NOTED BY ORNAMENTAL METAL ERECTOR NURSE, TO BE SMALL AND BLACK. WEEPING EDEMA OF BILATERAL LEGS. BLISTERS ON HIS LEGS ARE STILL INTACT. TRIALYSIS CATHETER PLACED 08/27/22, CENTRAL LINE TO R NECK.
[2022-08-28 09:12] LABS: M-SPIKE, % Not Observed % (Not Observed); PROTEIN,TOTAL,URINE 33.6 mg/dL (Not Estab.)
--- NOTE | 2022-08-28 12:30 | NUR ---
Called to come visit with pt and family by [employer]. Pt's and dtr are concerned that pt is now a DNR, they wish for him to be a full code. Pt's states that she believes pt's mom may have made him a DNR. Explained that this bid writer would research in pt's chart to see if there is any documentation that allows for other family members beside his to make medical decisions for him in the event that Kaz is unable to make them for himself. Kaz is currently receiving a HD treatment. Pt does have an AD on file in his bedside chart that is from July of 2022 during his hospitalization down in the [facility]. Kaz's AD appoints his sister to be his decision maker with his as first alternate and his mom as a second alternate. Reviewed AD with pt's and dtr. Explained that Kaz completed this AD and it is notarized in 07/23. Spoke with Kaz. He is alert and oriented and is able to tell this bid writer that the doctors have told him his liver and kidneys have failed. He occasionally is a bit forgetful, however it appears that he is able to make his own decisions at this time. Reviewed the AD with Kaz. He states he remembers filling out the AD and that he appointed his sister to be his decision maker. He verbally confirmed his choice for decision maker and reaffirms his desire to be a DNR. Kaz's and dtr are present for this conversation and verbalized acceptance of Kaz's choices that he outlined in his AD. Reviewed disease trajectory with Kaz and his family. Kaz is weak and jaundiced. He did not complain of any pain during this visit. HD was just finishing at the end of the visit. Provided pt's a PC business card per her request. Family appreciative of visit and explaining the choices outlined in pt's AD. Family is hopeful that Kaz may have some return of his liver and kidney function. For now Kaz and his family are wanting to continue with dialysis treatments and are taking his illness a day at a time. PC to remain available for advanced care planning and pt/family support.
--- NOTE | 2022-08-28 13:26 | NUR ---
Spiritual Care Visit. Pt. is awake in bed and welcomes my visit. Pt. verbalized appreciation for the spirritual care team as he recalled the visit from Chaplain Hitchcock on . Daughter is present, and spouse returned soon after visit began. Pt. is pleasant. Pt. displays evidence of being at peace because of his lady. Facilitate a life review and develop rapport. Prayed with Pt. Pt. verbalized gratitude for the spiritual care visit.
--- NOTE | 2022-08-28 15:02 | NUR ---
REQUESTED DC WOO ORDERS FROM DR. CASTANEDA, WHO STATED TO DIRECT TO DR. BRUNNER. FOLLOWING PATIENTS BED BATH, HE IS NOW PUTTING OUT URINE. CHARGE NURSE NOTIFIED. WILL LEAVE WOO IN PLACE AND CONTINUE TO MONITOR.
--- NOTE | 2022-08-28 17:45 | NUR ---
SHIFT SUMMARY NEURO: PATIENT REMAINED A&0 X4 THROUGHOUT THE ENTIRETY OF HIS SHIFT. HE REQUESTED PAIN MEDICATION ONCE FOR PAIN AT A "5,6,7" IN HIS LEGS, AND WAS WELL CONTROLLED WITH IS PRESCRIBED FENTANYL. CARDIAC: SINUS RHYTHM WITH HR IN 70'S-80'S. BP REMAINED STABLE. SEE VITAL FLOWSHEET. RESP: REMAINED ON ROOM AIR THROUGH THE ENTIRETY OF THE SHIT WITH O2 IN HIGH 90'S. BILAT LUNG BASES DIMINISHED. GI: TOLERATING MECHANICAL SOFT/RENAL/ADA DIET WELL, FINISHING 90% OF HIS PORTIONS. SMALL BLACK BM 08/28/2022. : ZERO URINE OUTPUT ON 08/27/2022 - REQUESTED ORDERS TO DC AMNA. DR. CASTANEDA DEFERRED TO DR. BRUNNER, HOWEVER FOLLOWING PT'S BATH HE BEGAN TO VOID. CHARGE NURSE NOTIFIED. 40mL OF TEA COLORED URINE OUT. SKIN: RECEVIED G BATH TODAY. DRY FLOWS CHANGED. NO NEW BLISTERS AND PREVIOUS BLISTERS REMAINED INTACT.
--- NOTE | 2022-08-28 20:00 | NUR ---
ASSUMED CARE OF PT AT 1915. REPORT RECEIVED. PT PRESENTS IN BED. ALERT AND ORIENTED. PLEASANT AND COOPERATIVE WITH CARE AND ASSESSMENT. DISCUSSED PLAN OF Q 2 HOUR TURNS, AND TO MANAGE PAIN PRN. PT'S MOTHER IN ROOM. PT HAS MINIMAL OUTPUT PER WOO CATHETER. ALEX IN COLOR. PT MAINTAINS WITH BEING VERY JAUNDICED. PT STATES THAT HE TOLERATED HEMODIALYSIS WELL THIS DAY. NO VERTIGO OR N/V. WILL REVIEW CHART AND PLAN OF CARE FOR THIS PT.
[2022-08-29] VITALS (67 sets, daily range): BP systolic 75–152; BP diastolic 31–78
--- NOTE | 2022-08-29 00:30 | NUR ---
DR BRUNNER COMES IN FOR VISIT. APPROVES OF DECISION TO REMOVE WOO CATHETER. THIS DONE, AND PT TOLERATES WELL. ALSO VERBALIZES AGREEMENT TO HAVING CATHETER REMOVED. PT HAS BEEN MEDICATED WITH 25 MCG'S FENTANYL FOR COMPLAINT OF LEG PAINS. HAS TOLERATED TURNS FAIR. USED CEILING LIFT FOR TURNS WHICH PT STATES MAKES MUCH MORE COMFORTABLE. PT CONTINUES WITH WEEPING EDEMA IN EXTREMITIES AND ABDOMEN. VSS. ORDER RECEIVED FROM DR BRUNNER TO INCREASE PO MIDODRINE DOSAGE. THIS DONE. WILL CONTINUE TO MONITOR PT.
[2022-08-29 05:21] LABS: BASOPHILS ABSOLUTE AUTO 0.01 K/mm3 (0.00-0.23); BASOPHILS PERCENT AUTO 0 % (0-2); EOSINOPHILS ABSOLUTE AUTO 0.19 K/mm3 (0.00-0.68); EOSINOPHILS PERCENT AUTO 5 % (0-6); Hematocrit 19.2 % (37.0-53.0); Hemoglobin 7.1 g/dL (13.5-17.5); IMMATURE GRAN PERCENT AUTO 5 % (0-1); LYMPHOCYTES PERCENT AUTO 11 % (21-46); MONOCYTES ABSOLUTE AUTO 0.36 K/mm3 (0.16-1.47); MONOCYTES PERCENT AUTO 10 % (4-13); Mean Corpuscular HGB 32.9 pg (26.0-34.0); Mean Corpuscular Volume 89 fL (80-100); Mean Platelet Volume 9.8 fL (9.1-12.4); NEUTROPHILS ABSOLUTE AUTO 2.64 K/mm3 (1.96-9.15); NEUTROPHILS PERCENT AUTO 69 % (41-73); RDW Standard Deviation 67.3 fL (35.1-46.3); Red Blood Cell Count 2.16 M/mm3 (4.30-5.90)
[2022-08-29 05:33] LABS: Platelet Count 39 K/mm3 (150-400)
[2022-08-29 05:39] LABS: Albumin, Blood 2.7 g/dL (3.4-5.0); Anion Gap 13 mmol/L (6-16); Blood Urea Nitrogen 139 mg/dL (8-24); Bun/Creatinine Ratio 29.3 (12.0-20.0); CO2, Blood 22 mmol/L (21-32); Calcium, Blood 8.2 mg/dL (8.5-10.1); Chloride, Blood 99 mmol/L (98-108); Creatinine, Blood 4.75 mg/dL (0.60-1.20); Glomerular Filtration Rate 14 (60-); Glucose, Blood 230 mg/dL (70-99); Magnesium, Blood 2.3 mg/dL (1.6-2.4); Potassium, Blood 3.9 mmol/L (3.5-5.5); Sodium, Blood 134 mmol/L (136-145)
--- NOTE | 2022-08-29 06:19 | NUR ---
PT HAS HAD VSS THROUGHOUT THE NIGHT. MEDICATED WITH 25 MCG'S FENTANYL FOR RECURRENT LEG PAIN. HAS TOLERATED TURNS FAIR. CONTINUES WITH WEEPING EDEMA. HAS REMAINED ALERT AND PLEASANT WITH CARE. HAVE REMOVED WOO CATHETER EARLIER IN NIGHT. NO VOID SINCE. PT NEAR ANURIC PRIOR TO REMOVING WOO. WILL CONTINUE TO MONITOR PT, AND WILL REPORT OFF TO ONCOMING RN.
--- NOTE | 2022-08-29 07:21 | NUR ---
ASSUMED CARE OF PATIENT. RECEVIED REPORT FROM WRITING CENTER DIRECTOR NURSE. PT IS AWAKE AND REPORTS THAT HE IS DOING WELL, SAVE FOR A KINK IN HIS NECK. ROLLED UP TOWEL PLACED BEHIND HIS NECK, AND HE REPORTS RELIEF FROM THIS. SISTER IS AT BEDSIDE. HE STATES THAT HE IS NOT HUNGRY AND DENIES ANY PAIN OR NAUSEA AT THIS TIME.
--- NOTE | 2022-08-29 18:25 | NUR ---
END OF SHIFT SUMMARY NEURO: PT REMAINED A&O X4 FOR THE ENTIRETY OF THE SHIFT AND REMAINED PLEASANT. HE EXPERIENCED PAIN AT A LEVEL OF 7 DURING HIS BATH AND REPOSITION, WHICH WAS WELL CONTROLLED WITH HIS PRESCRIBED FENTANYL. CARDIAC: BP HAD EPISODE OF 75/31. HE RECEIVED ALBUMIN AND PRESCRIBED MIDODRINE WHICH SLOWLY RE-ESTABLISHED A STABLE BP THAT HE MAINTAINED THROUGHOUT THE REMAINDER OF THE SHIFT. SR IN 70'S-80'S. RESP: PT WAS ON RA FOR THE ENTIRETY OF HIS SHIFT. IN THE AFTERNOON HIS SATURATION DROPPED TO HIGH 70'S WHILE HE WAS SLEEPING. HOB ELEVATED AND O2 REMAINED STABLE IN 90'S. GI: PT DEVELOPED NAUSEA DURING DIALYSIS AND HAD ONE EPISODE OF EMESIS. PRESCRIBED ZOFRAN WAS GIVEN AND PROVIDED RELIEF. HE ALSO HAD A LARGE BM THAT CONSISTED OF BLACK, STICKY STOOL. : WOO REMOVED 08/29/22 EARLY AM. NO URINE OUTPUT DURING THIS SHIFT. SKIN: MEPILEX TO WOUND ON SACRUM WERE CHANGED. CHG BATH GIVEN. PT TOLERATED WELL.
[2022-08-30] VITALS (30 sets, daily range): BP systolic 100–142; BP diastolic 40–72
[2022-08-30 04:26] LABS: Hemoglobin 7.2 g/dL (13.5-17.5)
[2022-08-30 04:50] LABS: Albumin, Blood 2.8 g/dL (3.4-5.0); Anion Gap 11 mmol/L (6-16); Blood Urea Nitrogen 107 mg/dL (8-24); CO2, Blood 26 mmol/L (21-32); Calcium, Blood 8.6 mg/dL (8.5-10.1); Chloride, Blood 97 mmol/L (98-108); Creatinine, Blood 4.11 mg/dL (0.60-1.20); Glomerular Filtration Rate 17 (60-); Glucose, Blood 230 mg/dL (70-99); Phosphorus, Blood 4.3 mg/dL (2.5-4.9); Potassium, Blood 3.8 mmol/L (3.5-5.5); Sodium, Blood 134 mmol/L (136-145)
--- NOTE | 2022-08-30 05:39 | NUR ---
SHIFT SUMMARY: Uneventful night. Pt slept for most of the night, denies pain except during repositioning. Was unable to tolerate PO meds, complained of nausea. He is still very edematous with scattered blisters/ open areas and weeping of bright yellow fluid. Extremely jaundiced. Vital signs stable.
--- NOTE | 2022-08-30 11:38 | NUR ---
SHIFT ASSESSMENT ASSUMED CARE OF PT @ 0700. PT ALERT AND ORIENTED, FOLLOWING COMMANDS, WEAKLY MOVES ALL EXTREMITIES. DENIES PAIN AT REST BUT QUITE PAINFUL DURING TURNS. SEVERELY EDEMATOUS, WEEPING IN LEGS AND SIDE. SKIN IS JAUNDICED. SCATTERED BLISTERS T/O. NO URINE OUTPUT THUS FAR. HAD MEDIUM SIZED LOOSE STOOL, BROWN IN COLOR, NO SIGNS OF BLEEDING. PICC TO YANET hadley SANDOSTATIN AND PROTONIX INFUSING. TRIALYSIS CATH TO [facility], CURRENTLY RECEIVING DIALYSIS. BP'S MILDY SOFT DURING DIALYSIS, MAP >60. PT TOLERATED A SMALL AMNT OF BREAKFAST BUT APPETITE IS MINIMAL. PT WISHING TO GO HOME AND SEE SOME TREES AND VISIT WITH HIS DOG. THIS NURSE TRYING TO MOTIVATE PT TO EXERCISE ARMS AND LEGS, COMPLIANT BUT VERY WEAK.
--- NOTE | 2022-08-30 18:43 | NUR ---
PT ARRIVED TO ROOM FROM ICU IN BED. FAMILY BEDSIDE. IV MEDS INFUSING PER ORDERS TO PICC LUE. PT JAUNDICED. HAS WEEPING EDEMA TO BLE. TRIALYSIS PORT TO [facility]. RR 14, 02 SATS 97% ON RA. HR 76. BP 117/57. TEMP 97.6. WARM BLANKETS PROVIDED FOR COMFORT. PT EATING DINNER AT THIS TIME.
--- NOTE | 2022-08-30 23:27 | NUR ---
ASSUMED PT CARE FROM CINDY BAÑUELOS ON . PT IS A&OX4. ABLE TO FOLLOW DIRECTIONS AND MAKE NEEDS KNOWN. PT MEDICATED WITH PRN PAIN MEDICATIONS FOR PAIN IN LEGS BILATERALLY. PT IS NOW RESTING IN BED WITH EYES CLOSED, APPEARS TO BE SLEEPING. HR IS SR IN 70'S. O2 SATS > 92% ON RA. PT DENIES ANY SOB, CHEST PAIN, OR NAUSEA. CONTINUOUS INFUSIONS FOR PROTONIX AND OCTREOTIDE INFUSING ORDERED. AT BEDSIDE, SLEEPING IN RECLINER. CALL LIGHT IN REACH. BED ALARM ON.
[2022-08-31] VITALS (24 sets, daily range): BP systolic 84–132; BP diastolic 42–58
[2022-08-31 04:31] LABS: Hematocrit 20.1 % (37.0-53.0); Hemoglobin 7.2 g/dL (13.5-17.5); Mean Corpuscular HGB 31.9 pg (26.0-34.0); Mean Corpuscular HGB Conc 35.8 g/dL (31.5-36.5); Mean Corpuscular Volume 89 fL (80-100); Mean Platelet Volume 12.2 fL (9.1-12.4); RDW Coefficient Variation 22.3 % (11.7-14.2); Red Blood Cell Count 2.26 M/mm3 (4.30-5.90); White Blood Cell Count 5.12 K/mm3 (4.00-11.30)
[2022-08-31 04:44] LABS: Albumin, Blood 2.9 g/dL (3.4-5.0); Anion Gap 8 mmol/L (6-16); Blood Urea Nitrogen 76 mg/dL (8-24); Bun/Creatinine Ratio 23.8 (12.0-20.0); CO2, Blood 30 mmol/L (21-32); Calcium, Blood 8.7 mg/dL (8.5-10.1); Chloride, Blood 96 mmol/L (98-108); Creatinine, Blood 3.19 mg/dL (0.60-1.20); Glomerular Filtration Rate 22 (60-); Glucose, Blood 260 mg/dL (70-99); Magnesium, Blood 1.8 mg/dL (1.6-2.4); Phosphorus, Blood 3.7 mg/dL (2.5-4.9); Potassium, Blood 3.6 mmol/L (3.5-5.5); Sodium, Blood 134 mmol/L (136-145)
[2022-08-31 04:46] LABS: Platelet Count 27 K/mm3 (150-400)
[2022-08-31 05:09] LABS: HBSAG SCREEN Negative (Negative); HCV AB Non Reactive (Non Reactive); HEP A AB, IGM Negative (Negative); HEP B CORE AB, IGM Negative (Negative)
--- NOTE | 2022-08-31 06:19 | NUR ---
PT SLEPT THROUGHOUT MAJORITY OF SHIFT. MEDICATED FOR PAIN WITH IV PAIN MEDS, SEE EMAR. PT DECLINES TO BE MOVED OR REPOSITIONED IN BED. SLEEPING IN CHAIR AT BEDSIDE. CALL LIGHT IN REACH.
--- NOTE | 2022-08-31 09:09 | NUR ---
CALLED CONSULT TO DR KUMAR CONSULT CALLED TO IR AND VASCULAR OFFICE FOR DR KUMAR. DR KUMAR IS NOT IN TODAY. WILL BE IN WEDNESDAY AND FRIDAY 09/01 AND 09/02. OFFICE STATED PATIENT IS NOW ON THE CONSULT LIST.
[2022-08-31 15:09] LABS: IMMUNOGLOBULIN A, QN, SERUM 120 mg/dL (90-386); IMMUNOGLOBULIN G, QN, SERUM 650 mg/dL (603-1613); IMMUNOGLOBULIN M, QN, SERUM 119 mg/dL (20-172)
[2022-08-31 18:09] LABS: ANTIMYELOPEROXIDASE (MPO) ABS <0.2 units (0.0-0.9); ANTIPROTEINASE 3 (PR-3) ABS <0.2 units (0.0-0.9); ATYPICAL PANCA <1:20 titer (Neg:<1:20); CYTOPLASMIC (C-ANCA) <1:20 titer (Neg:<1:20); PERINUCLEAR (P-ANCA) <1:20 titer (Neg:<1:20)
--- NOTE | 2022-08-31 18:42 | NUR ---
SHIFT SUMMARY ALERT AND ORIENTED. FATIGUED. DIALYSIS THIS AM, TOOK OFF ABOUT 3L. PATIENT RETURNED TO ROOM FOR LUNCH. WORKED WITH PT/OT/ST. EXERCISES IN BED. DIET UPGRADED TO SOFT BITE SIZE. RENAL DIET 1000 ML RESTRICTION. OLIGURIA, ATTENDS AND CONDOM CATH IN PLACE. 24 HOUR URINE COLLECTION STARTED AT 1630. INC OF BOWEL IN ATTENDS. SKIN JAUNDICED THROUGHOUT, DRAIN SITE TO RIGHT ABD, SORES TO BUTTOCKS WITH MEPILEX IN PLACE, PITTING EDEMA WITH BLISTERS TO BLE. SPOUSE ATTENTIVE AT BEDSIDE. PLAN FOR IR PLACEMENT OF PERMACATH. DR KUMAR CONSULT CALLED IN, HE IS TO SEE PATIENT TOMORROW 09/01/22.
[2022-09-01] VITALS (23 sets, daily range): BP systolic 84–127; BP diastolic 42–59
[2022-09-01 04:08] LABS: Hematocrit 19.5 % (37.0-53.0); Hemoglobin 7.1 g/dL (13.5-17.5); Mean Corpuscular HGB 32.9 pg (26.0-34.0); Mean Corpuscular HGB Conc 36.4 g/dL (31.5-36.5); Mean Corpuscular Volume 90 fL (80-100); Mean Platelet Volume 10.4 fL (9.1-12.4); RDW Coefficient Variation 22.8 % (11.7-14.2); RDW Standard Deviation 70.2 fL (35.1-46.3); Red Blood Cell Count 2.16 M/mm3 (4.30-5.90); White Blood Cell Count 5.02 K/mm3 (4.00-11.30)
[2022-09-01 04:21] LABS: Platelet Count 22 K/mm3 (150-400)
[2022-09-01 04:27] LABS: Bun/Creatinine Ratio 23.1 (12.0-20.0); Calcium, Blood 8.5 mg/dL (8.5-10.1); Creatinine, Blood 2.47 mg/dL (0.60-1.20); Potassium, Blood 3.2 mmol/L (3.5-5.5)
--- NOTE | 2022-09-01 05:42 | NUR ---
SHIFT SUMMARY A/OX4, BEDREST AT THIS TIME. AT BEDSIDE T/O NIGHT. SPO2 >92% ON RA. TELE SR 70S-80S. PROTONIX AND SANDOSTATIN GTT TO [facility] PICC. 24HR URINE IN PROGRESS. INCONT, CONDOM CATH IN PLACE. DENIES CHEST PAIN/PRESSURE. VSS, NO ACUTE CHANGES A THIS TIME. BED IN LOWEST POSITION WITH CALL LIGHT IN REACH. WILL CONTINUE TO MONITOR AND REPORT TO ONCOMING RN.
--- NOTE | 2022-09-01 06:04 | NUR ---
PER DR BRUNNER STAT POTASSIUM TO BE DRAWN AT 1200, CALL WITH RESULTS BY 1300. WILL UPDATE DAYSHIFT NURSE.
--- NOTE | 2022-09-01 09:55 | NUR ---
ASSUMPTION OF CARE: PATIENT IS ALERT AND ORIENTED, SLOW TO RESPOND AT TIMES. CAN OVERCOME GRAVITY IN BUE, HOWEVER, BLE ARE MORE WEAK, DENIES CHEST PAIN PRESSURE OR SOB SR ON TELE IN THE 70'S. NORMOTENSIVE MIDODRINE AN DIURETICS. CURRENLTY IN DIALYSIS, PICC TO YANET TRIALYSIS IN PLACE WELL, PLAN FOR PERMACATH AT SOME POINT TODAY. 24 HOUR URINE, FINISHES AT 1630. K+ INFUSSED OK AT 12, WITH CALL TO KANNAN NEEDED. PATIENT IS ON RA, IDM IN THE BASES. ENCOURAGED DEEP BREATHING AND COUGH. WILL CONTINUE TO MONITOR UNTIL SHIFT CHANGE. PATIENT IS NOW NO TELE MEDICAL STATUS. CBG THIS AM 227. TREATED. NPO CURRTIERNEYY FOR PERMACATH.
[2022-09-01 17:11] LABS: Protein, Urine Quantitative 39.3 mg/dL (0.0-11.9)
--- NOTE | 2022-09-01 19:20 | NUR ---
TRANSFER NOTE TRANSFER TO MEDICAL FLOOR FROM PCU VIA FILLER SHREDDING MACHINE LOADER FOR PLACEMENT OF PERMACATH FOR DIALYSIS. PATIENT FATIGUED AND DROWSY. REQUIRED SOME O2 VIA NC TO KEP SATS ABOVE 90%. PERMACATH SITE NOTED TO BE OOZING BLOOD. CONTACTED ASSEMBLER CLIP ON SUNGLASSES LION MCLEAN. EXTRA DRESSINGS WERE BROUGHT TO OUTSIDE ROOM, HOB ELEVATED TO 45 DEGREES, AND 2.5 LB WEIGHT PLACED ON TOP OF R SHOULDER PROXIMAL TO PERMACATH FOR PRESSURE. SUBSEQUENTLY OOZING SLOWED DOWN BUT NOT STOPPED COMPLETELY. PER ASSEMBLER CLIP ON SUNGLASSES IT IS COMMON FOR OOZING TO CONTINUE OFF AND ON FOR UP TO 24 HOURS, EDWARDO FOR PROFOUND HYPOCOAGULABLE STATE AND ANEMIA. PROTONIX AND OCTREOTIDE DRIPS CONTINUE. PATIENT ASSISTED TO BEDPAN FOR LARGE SOFT BM. 24 HOUR URINE COLLECTION COMPLETED AND SAMPLE SENT TO LAB. MEPILEX TO BUTTOCKS CHANGED. REPORT GIVEN TO RN SURGICAL RN.
[2022-09-02] VITALS (14 sets, daily range): BP systolic 93–124; BP diastolic 43–62
[2022-09-02 05:14] LABS: Hematocrit 20.5 % (37.0-53.0); Hemoglobin 7.1 g/dL (13.5-17.5)
[2022-09-02 05:26] LABS: International Normalized Ratio 2.53; Prothrombin Time Results 25.2 Sec (9.7-11.5)
[2022-09-02 05:59] LABS: Magnesium, Blood 1.9 mg/dL (1.6-2.4)
--- NOTE | 2022-09-02 06:23 | NUR ---
SHIFT SUMMARY ASSUMED CARE @ APPROX 2200, PT IS A&O X3, VSS, SPO2 >96% ON 3 L O2 VIA NC, PT STILL HAD THE WT OVER PERMACATH SITE, BLEEDING APPEARS TO HAVE SLOWED, NO CREPITUS NOTED, DRSG BLOODY BUT INTACT. DRSG WAS CHANGED THROUGH THE NIGHT, WT REAPPLIED DUE TO SLOW CONTINUED OOZE OF BLOOD, PT MEDICATED PER EMAR FOR PAIN, Q2 TURNS PROVIDED, ATTENDS CHANGED PRN, NEW MEPILEX TO COCCYX AREA, DRSG APPLIED TO SMALL WOUND ON LEFT FOOT THAT STARTED TO BLEED, FREQUENT ORAL CARE DUE TO BLEEDING ON THE INNER BOTTOM LIP, PT'S STATES "THE NURSE SAID SHE NOTED A SM CUT AFTER UNDERGOING CATH PROCEDURE, WEEPING EDEMA NOTED BLE, ELEVATED ON PILLOWS, PROTONIX/SANDOSTATIN GTT INFUSING PER EMAR, REMAINS AT THE BEDSIDE, CALL LIGHT IN REACH, WCTM & REPORT TO DAY RN
[2022-09-02 06:27] LABS: Albumin, Blood 3.3 g/dL (3.4-5.0); Bilirubin, Total 21.6 mg/dL (0.1-1.0); Bun/Creatinine Ratio 22.6 (12.0-20.0); Calcium, Blood 9.5 mg/dL (8.5-10.1); Creatinine, Blood 2.26 mg/dL (0.60-1.20); Phosphorus, Blood 2.9 mg/dL (2.5-4.9); Potassium, Blood 3.8 mmol/L (3.5-5.5)
[2022-09-02 06:41] LABS: Albumin/Globulin Ratio 2.2 (0.8-1.8); Globulin, Blood 1.5 g/dL (2.2-4.0); Total Protein, Blood 4.8 g/dL (6.4-8.2)
[2022-09-02 14:09] LABS: IMMUNOGLOBULIN A, QN, SERUM 97 mg/dL (90-386); IMMUNOGLOBULIN G, QN, SERUM 456 mg/dL (603-1613); IMMUNOGLOBULIN M, QN, SERUM 89 mg/dL (20-172)
--- NOTE | 2022-09-02 20:02 | NUR ---
SHIFT SUMMARY PTN FOLLOWING STRICT I&O'S WITH 1000 ML RESTRICTION. DIALYSIS DONE TODAY. PTN WITH SOME PAIN TO RIGHT LOWER EXTREMITY, MEDICATED PER EMAR. OT WORKED WITH PTN AND GOT PTN TO SIT AT BEDSIDE. HE WAS NOT UP TO AMBULATE, BUT TOLERATED THE TIME SITTING UP. PTN HAS SKIN BREAKDOWN ON R TOE AND LEFT FOOT, BOTH CLEANED AND DRESSED WITH NON-ADHERENT DRESSING, MEPILEX, AND KERLIX. VARIOUS OTHER SITES HAVE SKIN BREAKDOWN. ALSO NOTED WAS THE REDNESS TO THE LOWER ABD WITH WHAT LOOKED TO BE A RED RASH. TWO MEPILEX WERE ALSO PLACED TO THE BUTTOCKS. WOUND CONSULT WAS SUGGESTED, AND ORDER MAY HAVE BEEN PLACED BY DR BARNHART. PTN DID SPIT UP A LONG STRING OF WHAT LOOKED TO BE A BLOOD CLOT, AND DR BARNHART WAS MADE AWARE OF THIS. CONTINUE PLAN OF CARE.
[2022-09-03] VITALS (21 sets, daily range): BP systolic 69–121; BP diastolic 39–76
[2022-09-03 05:00] LABS: Hematocrit 19.8 % (37.0-53.0)
[2022-09-03 05:34] LABS: Albumin, Blood 3.5 g/dL (3.4-5.0); Anion Gap 6 mmol/L (6-16); Blood Urea Nitrogen 83 mg/dL (8-24); Bun/Creatinine Ratio 27.7 (12.0-20.0); CO2, Blood 29 mmol/L (21-32); Calcium, Blood 9.6 mg/dL (8.5-10.1); Chloride, Blood 103 mmol/L (98-108); Glomerular Filtration Rate 24 (60-); Glucose, Blood 201 mg/dL (70-99); Magnesium, Blood 1.8 mg/dL (1.6-2.4); Potassium, Blood 3.7 mmol/L (3.5-5.5); Sodium, Blood 138 mmol/L (136-145)
--- NOTE | 2022-09-03 07:46 | NUR ---
FENTANYL 25 MCG GIVEN X2 FOR PAIN. NO SIGNIFICANT CHANGES TO NOTE IN PATIENT CONDITION. AO WITH SLOW RESPONSES, MAKES NEEDS KNOWN, DIALYSIS PENDING THIS AM. PICC HAS SLUGGISH RETURN. ALSO PENDING WOUND CONSULT, ORDERED YESTERDAY.
[2022-09-03 17:10] LABS: ANTIMYELOPEROXIDASE (MPO) ABS <0.2 units (0.0-0.9); ANTIPROTEINASE 3 (PR-3) ABS <0.2 units (0.0-0.9); ATYPICAL PANCA <1:20 titer (Neg:<1:20); CYTOPLASMIC (C-ANCA) <1:20 titer (Neg:<1:20); PERINUCLEAR (P-ANCA) <1:20 titer (Neg:<1:20)
--- NOTE | 2022-09-03 18:01 | NUR ---
SHIFT SUMMARY PATIENT DENIES PAIN, NAUSEA, AND SHORTNESS OF BREATH. UP TO BATHROOM FOR SHOWER. GOOD PO INTAKE. OXYGEN SATURATION ABOVE 92% ON ROOM AIR. AT BEDSIDE. PATIENT USING OWN INSULIN PUMP. PLEASANT AND COOPERATIVE WITH CARE.
--- NOTE | 2022-09-03 19:35 | NUR ---
SHIFT SUMMARY PATIENT MEDICATED X1 WITH FENTANYL FOR HEADACHE THIS AFTERNOON. DENIES NAUSEA AND SHORTNESS OF BREATH. APPETITE IMPROVED THIS AFTERNOON. PATIENT ADHERING WELL TO 1L FLUID RESTRICTION. AT BEDSIDE. DRESSING TO FOOT WOUNDS C/D/I. WORKED WITH PT. PLEASANT AND COOPERATIVE WITH CARE.
[2022-09-04] VITALS (8 sets, daily range): BP systolic 98–124; BP diastolic 44–65
--- NOTE | 2022-09-04 04:07 | NUR ---
SHIFT SUMMARY PT IS AOX4, BEDREST FOR THE MOMENT BUT WORKING WITH PT. HE C/O NAUSEA AT THE START OF THE SHIFT AND WAS MEDICATED PER THE EMAR. HE STATED HE HAD EATEN MORE TODAY THAN HE HAD IN A WHILE, THINKING THAT MAY HAVE UPSET HIS STOMACH. HIS HAS BEEN AT THE BS ALL SHIFT, ASSISTING THE PT WITH THE URINAL AND OTHER TASKS. HE RECEIVED AN CHG BATH TONIGHT. HE IS A DIALYSIS PT. NO OTHER COMPLAINTS. WILL REPORT TO ONCOMING NURSE.
[2022-09-04 05:38] LABS: Hematocrit 18.6 % (37.0-53.0); Hemoglobin 6.5 g/dL (13.5-17.5); Mean Corpuscular HGB 32.7 pg (26.0-34.0); Mean Corpuscular HGB Conc 34.9 g/dL (31.5-36.5); Mean Corpuscular Volume 94 fL (80-100); RDW Coefficient Variation 24.3 % (11.7-14.2); RDW Standard Deviation 79.3 fL (35.1-46.3); Red Blood Cell Count 1.99 M/mm3 (4.30-5.90); White Blood Cell Count 2.95 K/mm3 (4.00-11.30)
--- NOTE | 2022-09-04 05:58 | NUR ---
CRITICAL LAB VALUE RECEIVED A CALL FROM LAB REGARDING PT'S PLATELET COUNT OF 12. PROVIDER, DR. ESPINOZA, NOTIFIED IN PERSON. ORDERS PLACED.
[2022-09-04 06:15] LABS: Albumin, Blood 3.4 g/dL (3.4-5.0); Albumin/Globulin Ratio 2.4 (0.8-1.8); Bilirubin, Total 18.9 mg/dL (0.1-1.0); Bun/Creatinine Ratio 25.6 (12.0-20.0); Calcium, Blood 9.2 mg/dL (8.5-10.1); Creatinine, Blood 2.7 mg/dL (0.60-1.20); Globulin, Blood 1.4 g/dL (2.2-4.0); Magnesium, Blood 1.7 mg/dL (1.6-2.4); Phosphorus, Blood 2.6 mg/dL (2.5-4.9); Potassium, Blood 3.5 mmol/L (3.5-5.5); Total Protein, Blood 4.8 g/dL (6.4-8.2)
[2022-09-04 06:34] LABS: International Normalized Ratio 2.31; Prothrombin Time Results 23.1 Sec (9.7-11.5)
[2022-09-04 06:46] LABS: Platelet Count 12 K/mm3 (150-400)
--- NOTE | 2022-09-04 18:11 | NUR ---
SHIFT SUMMARY MR LOYOLA IS ORIENTATED TO SELF, TO LOCATION, NOT TO DATE. HE HAS GOOD FAMILY SUPPORT AT THE BEDSIDE THROUGHOUT THE DAY. TL PICC LINE STILL IN PLACE. POOR APPETITE, URBAN GARBAGE DEPOT WORKER TALKING WITH PT AND HIS SISTER. [employer]IES DIRECTOR DID DRESSING CHANGES TO FEET AND BUTTOCKS TODAY WITH NEW PHOTOGRAPHS. PT ABLE TO ROLL SIDE TO SIDE WITH 1 ASSIST. HE HAS BEEN TRYING TO GET SOME SLEEP TODAY AND FREQUENTLY DISTURBED. HE DECLINED OT HE WAS VERY TIRED. HE RECEIVED PLATELETS THIS AM. NO HD TODAY. BED LOW, CALL LIGHT IN REACH.
--- NOTE | 2022-09-04 18:45 | NUR ---
RN NOTE PT SAID HE DOESN'T FEEL GOOD. NO APPETITE. FEELS GRUMPY. OFFERED AND GIVEN ZOFRAN. DR BARNHART CALLED AND FENTANYL ORDER PLACED IN [facility] FOR GENERAL PAIN AND DISCOMFORT. OFFERED PASTORAL CARE, OFFERED THERAPY DOG, ALL HE DECLINED.
[2022-09-05] VITALS (15 sets, daily range): BP systolic 80–114; BP diastolic 41–59
[2022-09-05 04:57] LABS: Hematocrit 18.7 % (37.0-53.0); Hemoglobin 6.6 g/dL (13.5-17.5)
[2022-09-05 05:21] LABS: Albumin, Blood 3.2 g/dL (3.4-5.0); Anion Gap 9 mmol/L (6-16); Blood Urea Nitrogen 99 mg/dL (8-24); Bun/Creatinine Ratio 28.5 (12.0-20.0); CO2, Blood 28 mmol/L (21-32); Calcium, Blood 9.8 mg/dL (8.5-10.1); Chloride, Blood 97 mmol/L (98-108); Creatinine, Blood 3.47 mg/dL (0.60-1.20); Glomerular Filtration Rate 20 (60-); Glucose, Blood 180 mg/dL (70-99); Phosphorus, Blood 3.1 mg/dL (2.5-4.9); Potassium, Blood 3.5 mmol/L (3.5-5.5); Sodium, Blood 134 mmol/L (136-145)
--- NOTE | 2022-09-05 06:06 | NUR ---
EVENT CREW TECHNICIAN SUMMARY PT A/OX3. COOPERATIVE WITH CARE. PT IS WITHDRAWN. WILL RESPOND TO QUESITONS AND DIRECTIONS APPROPRIATELY. PT SISTER AT BEDSIDE. PT HAS NOT CONTACTED THIS NURSE TO MAKE NEEDS KNONW; PT REQUIRES PROMPTING AND INVESTIGATION FOR NEEDS. PT PULLED DIALYSIS CATH DRESSING OFF; REPLACED DRESSING AND DISCUSSED RISK OF INFECTION. PT HGB 6.6 THIS AM. CALL TO SPEECH SCIENTIST/DR ESPINOZA--NEW ORDER TO TRANSFUST 1 UNIT OF PRBC THIS AM; DID NOT WANT TO WAIT UNTIL DIALYSIS. PT BLOOD PRSSURES HAVE BEEN SOFT OVERNIGHT ING THE LOW 100'S; WILL CONT TO MONITOR.
--- NOTE | 2022-09-05 18:33 | NUR ---
SHIFT SUMMARY OUT TO DIALYSIS THIS MORNING AND RETURNED APPROX LUNCHTIME. AT BEDSIDE MMOST OF THE DAY. REPORTED ON AND OFF OF A R SIDED HEADACHE. ICE APPLIED TO R SHOULDER/NECK DUE TO HIM STATING THAT AREA FEELS TIGHT AND SORE. REPORTED BETWEEN PAIN MEDS AND ICE PAIN RESOLVED. DRESSINGS TO LEGS INTACT. MORE AWAKE THIS AFTERNOON THAN THIS MORNING.
[2022-09-06] VITALS: BP 111/56
[2022-09-06 03:41] VITALS: BP 109/54
--- NOTE | 2022-09-06 06:26 | NUR ---
LABORATORY TECHNICIAN SUMMARY PT A/OX3. AT BEDSIDE T/O THE NIGHT. PT REPORTING NAUSEA AND VOMITTING. GAVE ZOFRAN WITH GOOD EFFECT AND MEDICATED FOR PAIN AFTER. PT REPORTS 7/10 PAIN. PT WILL NOT SELF REPORT UNLESS ASSESSED. PT SEEMS IN A BETTER MOOD AND A LITTLE MORE ENGAGED WITH CONVERSATION. FAMILY IS EXPRESSING CONCERN ABOUT THE REDNESS IN LOWER EXTREMETIES. WORKED WITH AID TO Q2 TURN/REPOSITION W/PILLOWS.
[2022-09-06 06:57] LABS: Hematocrit 20.9 % (37.0-53.0); Hemoglobin 7.3 g/dL (13.5-17.5); Mean Corpuscular HGB 31.9 pg (26.0-34.0); Mean Corpuscular HGB Conc 34.9 g/dL (31.5-36.5); Mean Corpuscular Volume 91 fL (80-100); RDW Coefficient Variation 24.1 % (11.7-14.2); RDW Standard Deviation 75.7 fL (35.1-46.3); Red Blood Cell Count 2.29 M/mm3 (4.30-5.90); White Blood Cell Count 2.98 K/mm3 (4.00-11.30)
[2022-09-06 07:04] LABS: Platelet Count 22 K/mm3 (150-400)
[2022-09-06 07:22] LABS: Albumin, Blood 3.3 g/dL (3.4-5.0); Albumin/Globulin Ratio 2.5 (0.8-1.8); Bilirubin, Total 18.2 mg/dL (0.1-1.0); Calcium, Blood 9.7 mg/dL (8.5-10.1); Creatinine, Blood 3.15 mg/dL (0.60-1.20); Globulin, Blood 1.3 g/dL (2.2-4.0); Magnesium, Blood 1.8 mg/dL (1.6-2.4); Phosphorus, Blood 2.9 mg/dL (2.5-4.9); Potassium, Blood 3.5 mmol/L (3.5-5.5); Total Protein, Blood 4.6 g/dL (6.4-8.2)
[2022-09-06 07:56] VITALS: BP 99/46
[2022-09-06 08:50] LABS: International Normalized Ratio 2.38; Prothrombin Time Results 23.8 Sec (9.7-11.5)
[2022-09-06 14:54] VITALS: BP 103/52
--- NOTE | 2022-09-06 16:32 | NUR ---
SHIFT SUMMARY PT IS ALERT AND SITTING AT BEDSIDE STRETCHING AND DOING SOME EXERCISING. PT SPENT MOST OF THE DAY SLEEPING. PT MENTIONED BEING READY TO GO HOME AND TAKE CARE OF ALL THE DUTIES AT HIS PROPERTY. PT REPORTS PAIN IN BLE DUE TO WOUNDS. TREATED PER EMAR. NO DIALYSIS TODAY. WILL HAVE DIALYSIS TOMORROW. NO ACUTE CHANGES THIS SHIFT. ALERT AND ORIENTED X4. R/A. SPOUSE AT BEDSIDE.
--- NOTE | 2022-09-06 18:37 | NUR ---
BLE DRESSINGS CHANGED DUE TO EXCESSIVE BLEEDING
[2022-09-06 20:02] VITALS: BP 106/50
[2022-09-07] VITALS (15 sets, daily range): BP systolic 77–113; BP diastolic 40–55
[2022-09-07 04:29] LABS: Hematocrit 20.2 % (37.0-53.0); Hemoglobin 7.1 g/dL (13.5-17.5); Mean Corpuscular HGB 31.8 pg (26.0-34.0); Mean Corpuscular HGB Conc 35.1 g/dL (31.5-36.5); Mean Corpuscular Volume 91 fL (80-100); RDW Coefficient Variation 24.1 % (11.7-14.2); RDW Standard Deviation 74.4 fL (35.1-46.3); Red Blood Cell Count 2.23 M/mm3 (4.30-5.90); White Blood Cell Count 3.02 K/mm3 (4.00-11.30)
[2022-09-07 04:35] LABS: Platelet Count 22 K/mm3 (150-400)
[2022-09-07 04:41] LABS: International Normalized Ratio 2.29; Prothrombin Time Results 22.9 Sec (9.7-11.5)
[2022-09-07 04:49] LABS: Albumin/Globulin Ratio 2.3 (0.8-1.8); Bilirubin, Total 16.8 mg/dL (0.1-1.0); Bun/Creatinine Ratio 23.2 (12.0-20.0); Calcium, Blood 9.6 mg/dL (8.5-10.1); Creatinine, Blood 4.4 mg/dL (0.60-1.20); Globulin, Blood 1.3 g/dL (2.2-4.0); Potassium, Blood 3.7 mmol/L (3.5-5.5); Total Protein, Blood 4.3 g/dL (6.4-8.2)
--- NOTE | 2022-09-07 05:32 | NUR ---
DEPUTY FELONY CLERK SUMMARY PT A/OX3. AT BEDSIDE. PT C/O OF MORE PAIN THIS SHIFT. MED PER EMAR. CRITICAL LAB; PLATELETS 22. HGB 7.1. OPEN BLISTERS ON BLE; LEFT FOOT DRESSING SATURATED. DRESSING CHANGED PER WOUND CARE ORDER.
--- NOTE | 2022-09-07 18:07 | NUR ---
PAIN ASSESSMENT PT C/O R SIDE HEADACHE PAIN THAT RADIATES TO THE R SIDE OF HIS NECK AND SHOULDER. HE STATES THAT IT HAS BEEN LIKE THAT YEARS WHEN HE INJURED IT PICKING UP A GENERATOR. HE STATES THAT IT IS A MUSCLE PAIN AND TENSION. WHEN HE TURNED HIS HEAD TO LEFT IT ALLEVIATES THE TENSION. MASSAGE AND HEAT PROVIDED TO HELP WITH PAIN.
--- NOTE | 2022-09-07 18:42 | NUR ---
SHIFT SUMMARY: PT IS A PLEASANT AND COOPERATIVE A&O X4 MALE. AND DAUGHTER AT BEDSIDE. END STAGE RENAL DISEASE AND JAUNDIC. HE HAD DIALYSIS TODAY WITHOUT DIFFICULTY. OLIGURIC, LAST STATED VOID WAS AT 0430. EAGERNESS TO RETURN HOME. OVERALL WEAKNESS, PT AND OT WAS ABLE TO GET HIM UP TODAY FOR A SHORT WHILE. WOUND CARE AND DRESSING CHANGES WERE PROVIDED. D/T LOW PLT COUNT OF 22 PT'S JOSE DANIEL FOOT WOUNDS DRAIN BLOOD OFTEN. (SEVERAL OTHER WOUNDS NOTED IN THE ASSESSMENT) PATIENT COMFORTABLE AND IS NOT IN DISTRESS.
[2022-09-08] VITALS (14 sets, daily range): BP systolic 73–113; BP diastolic 40–60
[2022-09-08 06:51] LABS: BASOPHILS ABSOLUTE AUTO 0.01 K/mm3 (0.00-0.23); BASOPHILS PERCENT AUTO 0 % (0-2); EOSINOPHILS ABSOLUTE AUTO 0.06 K/mm3 (0.00-0.68); EOSINOPHILS PERCENT AUTO 2 % (0-6); Hematocrit 19.8 % (37.0-53.0); Hemoglobin 7.1 g/dL (13.5-17.5); IMMATURE GRAN ABSOLUTE AUTO 0.17 K/mm3 (0.00-0.10); IMMATURE GRAN PERCENT AUTO 5 % (0-1); LYMPHOCYTES ABSOLUTE AUTO 0.95 K/mm3 (0.84-5.20); LYMPHOCYTES PERCENT AUTO 28 % (21-46); MONOCYTES ABSOLUTE AUTO 0.85 K/mm3 (0.16-1.47); MONOCYTES PERCENT AUTO 25 % (4-13); Mean Corpuscular HGB 32.9 pg (26.0-34.0); Mean Corpuscular HGB Conc 35.9 g/dL (31.5-36.5); Mean Corpuscular Volume 92 fL (80-100); NEUTROPHILS ABSOLUTE AUTO 1.34 K/mm3 (1.96-9.15); NEUTROPHILS PERCENT AUTO 40 % (41-73); RDW Coefficient Variation 24.7 % (11.7-14.2); RDW Standard Deviation 78.3 fL (35.1-46.3); Red Blood Cell Count 2.16 M/mm3 (4.30-5.90); White Blood Cell Count 3.38 K/mm3 (4.00-11.30)
[2022-09-08 07:02] LABS: Albumin, Blood 3.5 g/dL (3.4-5.0); Anion Gap 6 mmol/L (6-16); Blood Urea Nitrogen 82 mg/dL (8-24); Bun/Creatinine Ratio 20.7 (12.0-20.0); CO2, Blood 28 mmol/L (21-32); Calcium, Blood 9.9 mg/dL (8.5-10.1); Chloride, Blood 101 mmol/L (98-108); Creatinine, Blood 3.97 mg/dL (0.60-1.20); Glomerular Filtration Rate 17 (60-); Glucose, Blood 141 mg/dL (70-99); Magnesium, Blood 1.9 mg/dL (1.6-2.4); Phosphorus, Blood 3.1 mg/dL (2.5-4.9); Potassium, Blood 3.7 mmol/L (3.5-5.5); Sodium, Blood 135 mmol/L (136-145)
[2022-09-08 07:12] LABS: Platelet Count 20 K/mm3 (150-400)
--- NOTE | 2022-09-08 07:33 | NUR ---
Shift Summary Pt L foot dressing had heavy discharge tonight, changed dressing around 0000. Pt unable to sleep tonight, says he doesn't know why. No c/o pain or nausea. On fluid restriction. Pt heavily jaundiced. Critical value called in this AM, platelets at 20 down from 22 from last lab. Pt weak and remained in bed all shift. VSS, pleasant and cooperative, in room overnight.
--- NOTE | 2022-09-08 16:10 | NUR ---
PATIENT/FAMILY EDUCATION TODAY I EDUCATED THE PATIENT'S ON WOUND CARE FOR THE PATIET'S LOWER EXTREMITIY WOUNDS. PATIENT'S WAS PRESENT DURING THE WOUND CARE AND DRESSING CHANGES 09/07/22 AND WAS ABLE TO PREFORM WOUND CARE TODAY 09/08 WITH GUIDANCE. PATIENT AND ALSO EDUCATED ON THE USE OF INCENTIVE SPIROMETER.
--- NOTE | 2022-09-08 18:12 | NUR ---
SHIFT SUMMARY PT IS SHOWING IMPROVEMENT FROM YESTERDAY. WAS UP MULTIPLE TIMES TODAY SITTING ON SIDE OF THE BED AND AMBULATED WITH A GAITBELT AND WALKER TO THE BEDSIDE RECLINER. DIALYSIS CAME TO PATIENT'S BEDSIDE TODAY FOR TREATMENT. WOUND CARE WAS PROVIDED/EDUCATION WITH THE PATIENT'S IN PREPARATION FOR DISCHARGE TOMORROW 09/09. HIS WOUND CONTINUE TO BLEED, BUT IMPROVEMENT OF WOUND BLEEDING ON R DORSAL TOE WHERE ONLY A MEPILEX WAS APPLIED. HE REMAINS JAUNDICE AND DISPLAYED 3+ EDEMA IN HIS LOWER EXTREMTITIES, WHICH WAS NOT PRESENT 09/07. HE DID NOT VOID OR HAVE A BOWEL MOVEMENT DURING THE SHIFT. REMAINS ON FLUID RESTRICTIONS. TOLERATING TREATMENT AND CARE WELL. PLEASANT AND COOPERATIVE DENIED PAIN DURING THE SHIFT, NO DISTRESS.
--- NOTE | 2022-09-09 04:27 | NUR ---
SHIFT SUMMARY ADMITTED FOR HYPONATREMIA. DNR CODE. PLAN IS FOR DC HOME W/HH, OUTPT DIALYSIS. PICC LINE IN LUE. 1000 ML FLUID RESTRICTION. A&O X4, ON RA. REGULAR DIET. 2 ASSIST TO BSC. VENOUS STASIS ULCERS ON BILATERAL CALVES, DRESSINGS IN PLACE. HIS SKIN IS JAUNDICED. LACTULOSE IS SCHEDULED. LIQUID BM'S REPORTED THIS SHIFT . HE IS OLIGURIC. HX: CIRRHOSIS, GI BLEED, POSSIBLE NECROTIZING FACIITIS - MEDICALLY MANAGED.
[2022-09-09 06:24] LABS: BASOPHILS ABSOLUTE AUTO 0.01 K/mm3 (0.00-0.23); BASOPHILS PERCENT AUTO 0 % (0-2); EOSINOPHILS ABSOLUTE AUTO 0.08 K/mm3 (0.00-0.68); EOSINOPHILS PERCENT AUTO 2 % (0-6); Hematocrit 19.5 % (37.0-53.0); IMMATURE GRAN ABSOLUTE AUTO 0.17 K/mm3 (0.00-0.10); IMMATURE GRAN PERCENT AUTO 5 % (0-1); LYMPHOCYTES ABSOLUTE AUTO 0.89 K/mm3 (0.84-5.20); LYMPHOCYTES PERCENT AUTO 24 % (21-46); MONOCYTES PERCENT AUTO 29 % (4-13); Mean Corpuscular HGB 33.2 pg (26.0-34.0); Mean Corpuscular HGB Conc 35.9 g/dL (31.5-36.5); Mean Corpuscular Volume 92 fL (80-100); NEUTROPHILS PERCENT AUTO 40 % (41-73); RDW Coefficient Variation 25.4 % (11.7-14.2); RDW Standard Deviation 80.7 fL (35.1-46.3); Red Blood Cell Count 2.11 M/mm3 (4.30-5.90); White Blood Cell Count 3.75 K/mm3 (4.00-11.30)
[2022-09-09 06:32] LABS: Platelet Count 18 K/mm3 (150-400)
[2022-09-09 06:40] LABS: Albumin, Blood 3.6 g/dL (3.4-5.0); Albumin/Globulin Ratio 2.8 (0.8-1.8); Bilirubin, Total 17.1 mg/dL (0.1-1.0); Calcium, Blood 9.8 mg/dL (8.5-10.1); Creatinine, Blood 4.22 mg/dL (0.60-1.20); Globulin, Blood 1.3 g/dL (2.2-4.0); Potassium, Blood 3.8 mmol/L (3.5-5.5); Total Protein, Blood 4.9 g/dL (6.4-8.2)
[2022-09-09 07:14] LABS: International Normalized Ratio 2.2; Prothrombin Time Results 22.1 Sec (9.7-11.5)
[2022-09-09 07:47] VITALS: BP 110/63
[2022-09-09] MEDS ORDERED: JUVEN PACKET1 EAC3 PO (10:21)
[2022-09-09] MEDS ORDERED: BASAGLAR K100 UNIT/1 SC (10:23)
[2022-09-09] MEDS ORDERED: NEPHRO VITAMIN0.8 MG PO (10:24)
[2022-09-09] MEDS ORDERED: HONEY PASTE TOP (10:25)
[2022-09-09] MEDS ORDERED: HUMALOG KW100 UNIT/1 SC (10:27)
[2022-09-09] MEDS ORDERED: LACT10SY PO (10:28)
[2022-09-09] MEDS ORDERED: MIDO5 PO (10:28)
[2022-09-09] MEDS ORDERED: PANT20 PO (10:29)
[2022-09-09] MEDS ORDERED: VISBIOME 112.51 EACH PO (10:30)
[2022-09-09] MEDS ORDERED: DOXY100 PO (10:31)
[2022-09-09 12:12] LABS: M-SPIKE, % Not Observed % (Not Observed); PROTEIN,TOTAL,URINE 68.8 mg/dL (Not Estab.)
--- NOTE | 2022-09-09 13:12 | NUR ---
PATIENT DISCHARGED TO HOME WITH HOME HEALTH. PICC LINE REMOVED BY Daryn GUADALUPE RN. ALL DRESSINGS CHANGED PRIOR TO D/C. PT AND VERBALIZED UNDERSTANDING OF D/C INSTRUCTIONS. TAKING ALL DRESSING SUPPLIES THAT WERE ALREADY IN ROOM. OFF UNIT VIA W/C VAN AT 1305. NO PERSONAL BELONGINGS LEFT BEHIND IN ROOM.
== END 2022-09-09 13:30 | disposition home health service (06) | DRG 871 ==
LOC: EDBD 08:51 → ER 08:51 → MEDS 13:10 → ICUW 13:10 → PCU 08-30 18:42 → MEDS 09-01 15:46
PROVIDERS: Family Medicine; Internal Medicine; Internal Medicine Gastroenterology; Internal Medicine Nephrology; Orthopaedic Surgery; Student in an Organized Health Care Education/Training Program; ADMIT Internal Medicine
PROC: 3E03329 Introduction of Other Anti-infective into Peripheral Vein, Percutaneous Approach (ICD-10-PCS; principal; 2022-08-23)
PROC: 02HV33Z Insertion of Infusion Device into Superior Vena Cava, Percutaneous Approach (ICD-10-PCS; 2022-08-23)
PROC: 5A1D70Z Performance of Urinary Filtration, Intermittent, Less than 6 Hours Per Day (ICD-10-PCS; 2022-08-23)
PROC: 30233L1 Transfusion of Nonautologous Fresh Plasma into Peripheral Vein, Percutaneous Approach (ICD-10-PCS; 2022-08-23)
PROC: 5A09357 Assistance with Respiratory Ventilation, Less than 24 Consecutive Hours, Continuous Positive Airway Pressure (ICD-10-PCS; 2022-08-23)
PROC: 30233K1 Transfusion of Nonautologous Frozen Plasma into Peripheral Vein, Percutaneous Approach (ICD-10-PCS; 2022-08-23)
PROC: B548ZZA Ultrasonography of Superior Vena Cava, Guidance (ICD-10-PCS; 2022-08-23)
PROC: 0T9B70Z Drainage of Bladder with Drainage Device, Via Natural or Artificial Opening (ICD-10-PCS; 2022-08-23)
PROC: 02H633Z Insertion of Infusion Device into Right Atrium, Percutaneous Approach (ICD-10-PCS; 2022-08-23)
PROC: 30233N1 Transfusion of Nonautologous Red Blood Cells into Peripheral Vein, Percutaneous Approach (ICD-10-PCS; 2022-08-24)
PROC: 30233R1 Transfusion of Nonautologous Platelets into Peripheral Vein, Percutaneous Approach (ICD-10-PCS; 2022-08-24)
PROC: 30233K1 Transfusion of Nonautologous Frozen Plasma into Peripheral Vein, Percutaneous Approach (ICD-10-PCS; 2022-08-26)
PROC: 30233L1 Transfusion of Nonautologous Fresh Plasma into Peripheral Vein, Percutaneous Approach (ICD-10-PCS; 2022-08-26)
PROC: 30233N1 Transfusion of Nonautologous Red Blood Cells into Peripheral Vein, Percutaneous Approach (ICD-10-PCS; 2022-08-27)
PROC: 30233N1 Transfusion of Nonautologous Red Blood Cells into Peripheral Vein, Percutaneous Approach (ICD-10-PCS; 2022-09-01)
PROC: 0JH63XZ Insertion of Tunneled Vascular Access Device into Chest Subcutaneous Tissue and Fascia, Percutaneous Approach (ICD-10-PCS; 2022-09-01)
PROC: B548ZZA Ultrasonography of Superior Vena Cava, Guidance (ICD-10-PCS; 2022-09-01)
PROC: B518ZZA Fluoroscopy of Superior Vena Cava, Guidance (ICD-10-PCS; 2022-09-01)
DX: A41.9 Sepsis, unspecified organism (principal); J96.01 Acute respiratory failure with hypoxia; M72.6 Necrotizing fasciitis; R65.21 Severe sepsis with septic shock; E87.1 Hypo-osmolality and hyponatremia; D61.818 Other pancytopenia; K92.1 Melena; E87.20 Acidosis, unspecified; L03.116 Cellulitis of left lower limb; D68.8 Other specified coagulation defects; D62 Acute posthemorrhagic anemia; N17.9 Acute kidney failure, unspecified; Z51.5 Encounter for palliative care; Z66 Do not resuscitate; K76.82 Hepatic encephalopathy; E83.39 Other disorders of phosphorus metabolism; E88.09 Other disorders of plasma-protein metabolism, not elsewhere classified; K70.31 Alcoholic cirrhosis of liver with ascites; K70.40 Alcoholic hepatic failure without coma; E83.51 Hypocalcemia; N18.30 Chronic kidney disease, stage 3 unspecified; F10.20 Alcohol dependence, uncomplicated; E87.6 Hypokalemia; E66.9 Obesity, unspecified; D63.1 Anemia in chronic kidney disease; E11.22 Type 2 diabetes mellitus with diabetic chronic kidney disease; Z68.34 Body mass index [BMI] 34.0-34.9, adult; Z90.49 Acquired absence of other specified parts of digestive tract; Z98.890 Other specified postprocedural states; Z79.4 Long term (current) use of insulin; Z79.52 Long term (current) use of systemic steroids; Z79.899 Other long term (current) drug therapy
CPT/HCPCS: 36415; 36430; 36556; 36558; 36569; 51702; 70450; 71045; 73701; 76770; 76882; 76937; 77001; 80048; 80053; 80069; 80074; 80202; 81001; 81050; 82140; 82248; 82550; 82803; 82947; 83516; 83520; 83605; 83735; 83880; 83930; 84100; 84132; 84156; 84166; 84295; 85014; 85018; 85025; 85027; 85379; 85384; 85610; 85651; 85730; 86037; 86038; 86140; 86317; 86334; 86335; 86850; 86900; 86901; 86920; 86923; 87040; 87077; 87186; 92526; 92610; 93306; 93971; 94660; 94762; 96365-59; 96366-59; 96367-59; 96368; 96375-59; 97110; 97116; 97163; 97164; 97166; 97530; 97535; 99152; 99285-25; A9270; C1750; C1751; C1752; C1769; C1894; C9113; J0696; J0881; J1644; J1815; J1940; J1956; J2250; J2354; J2405; J2543; J3010; J3370; J3480; J7030; J7040; J7050; P9016; P9035; P9046; P9047; P9059; Q9967

== ENCOUNTER 2022-11-05 01:29 | Day surgery (SDC) | payer OTHER ==
[~2022-11-05 01:29] MED LIST: BASAGLAR K100 UNIT/1 SC; DOXY100 PO; HONEY PASTE TOP; HUMALOG KW100 UNIT/1 SC; INSULANI SC; JUVEN PACKET1 EAC3 PO; LACT10SY PO; MIDO5 PO; NEPHRO VITAMIN0.8 MG PO; ONDA4ODT MM; PANT20 PO; Prednisone10 MG PO; SODBIC650 PO; TRAZ50 PO; VISBIOME 112.51 EACH PO
== END 2022-11-05 23:02 | disposition home or self-care (01) ==
LOC: WOUND 01:29
DX: E11.622 Type 2 diabetes mellitus with other skin ulcer (principal); E11.621 Type 2 diabetes mellitus with foot ulcer; E11.22 Type 2 diabetes mellitus with diabetic chronic kidney disease; L97.822 Non-pressure chronic ulcer of other part of left lower leg with fat layer exposed; L97.819 Non-pressure chronic ulcer of other part of right lower leg with unspecified severity; L03.115 Cellulitis of right lower limb; L03.116 Cellulitis of left lower limb; I87.313 Chronic venous hypertension (idiopathic) with ulcer of bilateral lower extremity; K70.31 Alcoholic cirrhosis of liver with ascites; K76.7 Hepatorenal syndrome; N18.6 End stage renal disease; D69.6 Thrombocytopenia, unspecified; I73.9 Peripheral vascular disease, unspecified; Z99.2 Dependence on renal dialysis
CPT/HCPCS: A9270; G0463